=== PATIENT | female | born 2005 | race Caucasian/White ===

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

== ENCOUNTER → 2025-03-10 | Outpatient (CLI) | payer OTHER, SELFPAY ==
[2025-03-10 10:08] LABS: Absolute Lymphocyte Count 2.03 X10^3/uL (0.83-4.51); Absolute Neutrophil Count 3.5 X10^3/uL (2.0-7.7); Basophil# 0.05 X10^3/uL; Basophil% 0.8 % (0-1); Eosinophil# 0.08 X10^3/uL; Eosinophils% 1.3 % (0-5); Hematocrit 42.2 % (37-47); Hemoglobin 13.8 g/dL (12.0-15.0); Lymphocyte # 2.03 X10^3/ul (0.83-4.51); Lymphocyte % 32.8 % (19-41); Mean Corp Hgb Conc 32.7 g/dL (32-36); Mean Corpuscular Hgb 28.9 pg (27.0-32.0); Mean Corpuscular Volume 88.5 fL (81-99); Mean Platelet Vol. 10.7 fl (6.2-12.0); Monocyte% 8.1 % (0-10); NRBC Flagged by Analyzer 0 % (0-5); Neutrophil # 3.49 X10^3/uL (2.7-7.7); Neutrophil % 56.5 % (47-70); Platelet Count 357 K/mm3 (150-450); RBC Distribution Width CV 12.4 % (11.6-14.6); RBC Distribution Width SD 40.6 fl (35.1-43.9); Red Blood Count 4.77 M/mm3 (4.2-5.4); White Blood Count 6.2 K/mm3 (4.4-11.0)
[2025-03-10 11:28] LABS: ALB/GLOB Ratio 1.4 RATIO (0.9-2.4); AST(SGOT) 29 U/L (<=31); Alanine Aminotransfer ALT/SGPT 36 U/L (<=34); Albumin, Serum 4.4 g/dL (3.5-5.0); Alkaline Phosphatase 112 U/L (35-104); Anion Gap 11 (5-15); BUN 19 mg/dL (4-19); BUN/Creat Ratio 20.8 RATIO (10-20); Calcium,Total 9.5 mg/dL (7.6-11.0); Carbon Dioxide 24.9 mmol/L (21.0-32.0); Chloride 105 mmol/L (98-108); Cholesterol 219 mg/dL (<=190); Creatinine, Serum 0.91 mg/dL (0.70-1.20); EST Glomerular Filtration Rate 93 (>60); Ferritin 27 ng/mL (22-378); Globulin 3.1 g/dL (2.2-4.2); Glucose 90 mg/dL (70-99); High Density Lipoprotein 56 mg/dL; Low Density Lipoprotein Calc. 132 mg/dL; Potassium 4.3 mmol/L (3.3-5.1); Protein, Total 7.6 g/dL (5.9-8.4); Sodium Level 141 mmol/L (133-145); Total Bilirubin 0.29 mg/dL (0.00-1.30); Triglycerides 156 mg/dL; Very Low Density Lipoprotein 31 mg/dL (5-40); Vitamin D,25 Hydroxy 21.9 ng/mL (30-100); cholesterol:hdl ratio screen 3.93
[2025-03-10 11:49] LABS: Iron 66 ug/dL (50-170); Iron Binding Capacity,Total 341 ug/dL (250-450); Iron Binding Capacity,Unsat 275 ug/dL (228-428); Magnesium 2.1 mg/dL (1.5-2.2)
--- OUTSIDE RECORDS SUMMARY | 2025-03-10 12:20 | XMS RPT_ITS | CCD ---
Author Organization [facility] [place] [facility] Care Team Providers Care Photographic Equipment Mechanic Name Role Phone NO PRIMARY CAREMD Primary Care Unavailable TRAN CORRAL Attending Unavailable REFERRED, SELF Referring Unavailable Dr. Ignacio Townsend Referring Provider Dr. Gabe Olson Attending Provider DO Tiffani Mckeon Primary Care Provider Gabe Olson Attending Unavailable Tiffani Mckeon Primary Care Unavailable Ignacio Townsend Referring Unavailable Tiffani Mckeon Primary Care Unavailable Mary Sifuentes Attending Unavailable Medications Current Medications Medication Drug Class(es) Dates Sig (Normalized) Sig (Original) sertraline 50 mg oral tablet (1 source) Serotonin Reuptake Inhibitor Start: 09-28-2023 take 50 mg by mouth once daily Sertraline Active 50 MG PO DAILY September 28, 2023 1:00am Completed/Discontinued Medications Medication Drug Class(es) Dates Sig (Normalized) Sig (Original) atomoxetine 25 mg oral capsule (1 source) Norepinephrine Reuptake Inhibitor Start: 09-28-2023 End: 11-28-2023 take 25 mg by mouth once daily Atomoxetine Discontinued 25 MG PO DAILY September 28, 2023 1:00am November 28, 2023 4:09pm Cetirizine (1 source) Histamine-1 Receptor Antagonist Start: 09-28-2023 End: 11-28-2023 cetirizine (Children's Zyrtec Allergy) Discontinued PO September 28, 2023 1:00am November 28, 2023 4:09pm Problems Problem Classification Problem Date Documented Date Episodic/Chronic Administrative/social admission (1 source) Special examination status; Translations: [Encounter for examination for participation in sport] 09-28-2023 Episodic Conditions associated with dizziness or vertigo (4 sources) Dizziness; Translations: [Dizziness and giddiness] Onset: 01-01-2024 11-28-2023 Episodic Results Test Name Value Interpretation Reference Range Facility ANTINUCLEAR ANTIBODIES DIREC Ton 12-28-2023 DIMA,DIRECT Negative Normal Negative [facility] Comment on above: Order Comment: Order Date: 12/26/23 Order Info: 0270-1 - DIMA Result Comment: Perf ormed at: [facility] [address] [id number] [place]: Jamey Borja PhD, Phone: [phone] Performed By: #### L 501.9520, L500.4050, L100.0100, L700.6800, L506.0250, L506.1000, L3100.5475, L501.9985 #### [facility] [address] [place], [address] Absolute lymphocyte countOrd ered By: Mary Sifuentes on 12-26-2023 Lymphocytes Auto (Unsp spec) [#/Vol] 2.12 10*3/uL 0.83-4.51 [facility] Automated lymphocyte count a s percentage of total leukocytesOrdered By: Mary Sifuentes on 12-26-2023 Lymphocytes/100 WBC Auto (Unsp spec) 29.4 % 25-45 [facility] Basophil percentageOrdered B y: Sarwatemily Bear on 12-26-2023 Basophils/100 WBC (Bld) 0.7 % 0-1 [facility] Bilirubin [Mass/Vol] 0.40 mg/dL 0.20-1.[address] [facility] Comment on above: For patients on eltr ombopag therapy, use of Dimension [place] TBIL is not recommended. Chloride [Moles/Vol] 105 mmol/L 98-[address] [facility] Eosinophils/100 WBC (Bld) 1.1 % 0-3 [facility] Glucose [Mass/Vol] 96 mg/dL 74-106 [facility] Hemoglobin (Bld) [Mass/Vol] 14.1 g/dL 12.0-15.0 [facility] Monocytes/100 WBC (Bld) 6.9 % 3-6 [facility] Neutrophils (Bld) [#/Vol] 4.5 10*3/uL 2.0-7.7 [facility] Neutrophils/100 WBC (Bld) 61.6 % 34-64 [facility] Potassium [Moles/Vol] 4.2 mmol/L 3.5-5.1 [facility] Protein [Mass/Vol] 8.1 g/dL 6.4-8.2 [facility] Sodium [Moles/Vol] 139 mmol/L 136-145 [facility] WBC (Bld) [#/Vol] 7.2 10*3/uL 4.5-13.0 [facility] CBC W/Diff, Automatedon 03- 0-2023 Absolute Lymph 2.12 X10 3/uL Normal 0.83-4.51 [facility] Comment on above: Order Comment: Order Date: 12/26/23 Order Info: 0184-1 - CBCD Performed By: #### L 501.9520, L500.4050, L100.0100, L700.6800, L506.0250, L506.1000, L3100.5475, L501.9985 #### [facility] [address] [place], [address] Absolute Neut 4.5 X10 3/uL Normal 2.0-7.7 [facility] Comment on above: Order Comment: Order Date: 12/26/23 Order Info: 0184-1 - CBCD Performed By: #### L 501.9520, L500.4050, L100.0100, L700.6800, L506.0250, L506.1000, L3100.5475, L501.9985 #### [facility] [address] [place], [address] Basophils/100 WBC (Bld) 0.7 % Normal 0-1 [facility] Comment on above: Order Comment: Order Date: 12/26/23 Order Info: 0184-1 - CBCD Performed By: #### L 501.9520, L500.4050, L100.0100, L700.6800, L506.0250, L506.1000, L3100.5475, L501.9985 #### [facility] [address] [place], [address] Eosinophils/100 WBC (Bld) 1.1 % Normal 0-3 [facility] Comment on above: Order Comment: Order Date: 12/26/23 Order Info: 0184- - CBCD Performed By: #### L 501.9520, L500.4050, L100.0100, L700.6800, L506.0250, L506.1000, L3100.5475, L501.9985 #### [facility] [address] [place], [address] Erythrocyte distribution width (RBC) [Ratio] 12.2 % Normal 11.6-14.6 [facility] Comment on above: Order Comment: Order Date: 12/26/23 Order Info: 0184- - CBCD Performed By: #### L 501.9520, L500.4050, L100.0100, L700.6800, L506.0250, L506.1000, L3100.5475, L501.9985 #### [facility] [address] [place], [address] Hematocrit (Bld) [Volume fraction] 44.4 % Normal 37-46 [facility] Comment on above: Order Comment: Order Date: 12/26/23 Order Info: 0184- - CBCD Performed By: #### L 501.9520, L500.4050, L100.0100, L700.6800, L506.0250, L506.1000, L3100.5475, L501.9985 #### [facility] [address] [place], [address] Hemoglobin (Bld) [Mass/Vol] 14.1 g/dL Normal 12.0-15.0 [facility] Comment on above: Order Comment: Order Date: 12/26/23 Order Info: 0184- - CBCD Performed By: #### L 501.9520, L500.4050, L100.0100, L700.6800, L506.0250, L506.1000, L3100.5475, L501.9985 #### [facility] [address] [place], [address] IG% 0.300 Normal 0.0-0.9 [facility] Comment on above: Order Comment: Order Date: 12/26/23 Order Info: 0184-1 - CBCD Result Comment: IG% - Immature Granulocytes (promyelocytes, myelocytes and metamyelocytes) > 1% indicates that a LEFT SHIFT is Present. Performed By: #### L 501.9520, L500.4050, L100.0100, L700.6800, L506.0250, L506.1000, L3100.5475, L501.9985 #### [facility] [address] [place], [place], [id number] Lymphocytes/100 WBC (Bld) 29.4 % Normal 25-45 [facility] Comment on above: Order Comment: Order Date: 12/26/23 Order Info: 0184-1 - CBCD Performed By: #### L 501.9520, L500.4050, L100.0100, L700.6800, L506.0250, L506.1000, L3100.5475, L501.9985 #### [facility] [address] [place], [address] MCH (RBC) [Entitic mass] 28.1 pg Normal 25.0-35.0 [facility] Comment on above: Order Comment: Order Date: 12/26/23 Order Info: 0184-1 - CBCD Performed By: #### L 501.9520, L500.4050, L100.0100, L700.6800, L506.0250, L506.1000, L3100.5475, L501.9985 #### [facility] [address] [place], [address] MCHC (RBC) [Mass/Vol] 31.8 g/dL Low 32-36 [facility] Comment on above: Order Comment: Order Date: 12/26/23 Order Info: 0184-1 - CBCD Performed By: #### L 501.9520, L500.4050, L100.0100, L700.6800, L506.0250, L506.1000, L3100.5475, L501.9985 #### [facility] [address] [place], [address] MCV (RBC) [Entitic vol] 88.6 fL Normal 78-96 [facility] Comment on above: Order Comment: Order Date: 12/26/23 Order Info: 0184- - CBCD Performed By: #### L 501.9520, L500.4050, L100.0100, L700.6800, L506.0250, L506.1000, L3100.5475, L501.9985 #### [facility] [address] [place], [address] Monocytes/100 WBC (Bld) 6.9 % High 3-6 [facility] Comment on above: Order Comment: Order Date: 12/26/23 Order Info: 0184-1 - CBCD Performed By: #### L 501.9520, L500.4050, L100.0100, L700.6800, L506.0250, L506.1000, L3100.5475, L501.9985 #### [facility] [address] [place], [address] Neutrophils/100 WBC (Bld) 61.6 % Normal 34-64 [facility] Comment on above: Order Comment: Order Date: 12/26/23 Order Info: 0184-1 - CBCD Performed By: #### L 501.9520, L500.4050, L100.0100, L700.6800, L506.0250, L506.1000, L3100.5475, L501.9985 #### [facility] [address] [place], [address] Nucleated RBC (Bld) [#/Vol] 0 10*3/uL Normal 0-5 [facility] Comment on above: Order Comment: Order Date: 12/26/23 Order Info: 0184-1 - CBCD Performed By: #### L 501.9520, L500.4050, L100.0100, L700.6800, L506.0250, L506.1000, L3100.5475, L501.9985 #### [facility] [address] [place], [address] Platelet mean volume (Bld) [Entitic vol] 10.9 fL Normal 6.2-12.0 [facility] Comment on above: Order Comment: Order Date: 12/26/23 Order Info: 0184-1 - CBCD Performed By: #### L 501.9520, L500.4050, L100.0100, L700.6800, L506.0250, L506.1000, L3100.5475, L501.9985 #### [facility] [address] [place], [address] Platelets (Bld) [#/Vol] 375 10*3/uL Normal 150-450 [facility] Comment on above: Order Comment: Order Date: 12/26/23 Order Info: 0184-1 - CBCD Performed By: #### L 501.9520, L500.4050, L100.0100, L700.6800, L506.0250, L506.1000, L3100.5475, L501.9985 #### [facility] [address] [place], [address] RBC (Bld) [#/Vol] 5.01 10*6/uL High 4.1-4.8 [facility] Comment on above: Order Comment: Order Date: 12/26/23 Order Info: 0184-1 - CBCD Performed By: #### L 501.9520, L500.4050, L100.0100, L700.6800, L506.0250, L506.1000, L3100.5475, L501.9985 #### [facility] [address] [place], [address] RDW SD 39.5 fl Normal 35.1-43.9 [facility] Comment on above: Order Comment: Order Date: 12/26/23 Order Info: 0184-1 - CBCD Performed By: #### L 501.9520, L500.4050, L100.0100, L700.6800, L506.0250, L506.1000, L3100.5475, L501.9985 #### [facility] [address] [place], [address] WBC (Bld) [#/Vol] 7.2 10*3/uL Normal 4.5-13.0 [facility] Comment on above: Order Comment: Order Date: 12/26/23 Order Info: 0184-1 - CBCD Performed By: #### L 501.9520, L500.4050, L100.0100, L700.6800, L506.0250, L506.1000, L3100.5475, L501.9985 #### [facility] [address] [place], [place], [id number] [phone] Metabolic Prof [facility] 12-26-2023 Albumin [Mass/Vol] 4.0 g/dL Normal 3.2-5.0 [facility] Comment on above: Order Comment: Order Date: 12/26/23 Order Info: 0786-1 - CMP Order Info: 3016-3 - TSH Order Info: 2284-8 - FOLS N Performed By: #### L 501.9520, L500.4050, L100.0100, L700.6800, L506.0250, L506.1000, L3100.5475, L501.9985 #### [facility] [address] [place], [address] Albumin/Globulin [Mass ratio] 1.0 {ratio} Normal 0.9-2.4 [facility] Comment on above: Order Comment: Order Date: 12/26/23 Order Info: 0786-1 - CMP Order Info: 3015-12 - TSH Order Info: 8 - FOLS N Performed By: #### L 501.9520, L500.4050, L100.0100, L700.6800, L506.0250, L506.1000, L3100.5475, L501.9985 #### [facility] [address] [place], [address] ALK P 116 U/L Normal 47-119 [facility] Comment on above: Order Comment: Order Date: 12/26/23 Order Info: 785-10 - CMP Order Info: 3015-12 - TSH Order Info: 2284-05 - FOLS N Performed By: #### L 501.9520, L500.4050, L100.0100, L700.6800, L506.0250, L506.1000, L3100.5475, L501.9985 #### [facility] [address] [place], [place], [address] ALT [Catalytic activity/Vol] 25 U/L Normal 13-56 [facility] Comment on above: Order Comment: Order Date: 12/26/23 Order Info: 0786- - CMP Order Info: 3015-12 - TSH Order Info: 2284-05 - FOLS N Performed By: #### L 501.9520, L500.4050, L100.0100, L700.6800, L506.0250, L506.1000, L3100.5475, L501.9985 #### [facility] [address] [place], [address] AST [Catalytic activity/Vol] 21 U/L Normal 15-37 [facility] Comment on above: Order Comment: Order Date: 12/26/23 Order Info: 0786-1 - CMP Order Info: 3016-3 - TSH Order Info: 2284-05 - FOLS N Performed By: #### L 501.9520, L500.4050, L100.0100, L700.6800, L506.0250, L506.1000, L3100.5475, L501.9985 #### [facility] [address] [place], [address] Bilirubin [Mass/Vol] 0.40 mg/dL Normal 0.20-1.[address] [facility] Comment on above: Order Comment: Order Date: 12/26/23 Order Info: 07-1 - CMP Order Info: 3 - TSH Order Info: 2284-05 - FOLS N Result Comment: For patients on eltrombopag therapy, use of Dimension [place] TBIL is not recommended. Performed By: #### L 501.9520, L500.4050, L100.0100, L700.6800, L506.0250, L506.1000, L3100.5475, L501.9985 #### [facility] [address] [place], [address] BUN/CRE 19.4 RATIO Normal 10-20 [facility] Comment on above: Order Comment: Order Date: 12/26/23 Order Info: 0786- - CMP Order Info: 3015-12 - TSH Order Info: 2284-05 - FOLS N Performed By: #### L 501.9520, L500.4050, L100.0100, L700.6800, L506.0250, L506.1000, L3100.5475, L501.9985 #### [facility] [address] [place], [address] CA,Total 9.5 mg/dL Normal 8.5-10.1 [facility] Comment on above: Order Comment: Order Date: 12/26/23 Order Info: 0786-1 - CMP Order Info: 3015-12 - TSH Order Info: 8 - FOLS N Performed By: #### L 501.9520, L500.4050, L100.0100, L700.6800, L506.0250, L506.1000, L3100.5475, L501.9985 #### [facility] [address] [place], [address] Chloride [Moles/Vol] 105 mmol/L Normal 98-[address] [facility] Comment on above: Order Comment: Order Date: 12/26/23 Order Info: 07- - CMP Order Info: 3015-12 Order Info: 2284-05 - FOLS N Performed By: #### L 501.9520, L500.4050, L100.0100, L700.6800, L506.0250, L506.1000, L3100.5475, L501.9985 #### [facility] [address] [place], [place], [phone] ([phone] CO2 [Moles/Vol] 28.0 mmol/L Normal 21.0-32.0 [facility] Comment on above: Order Comment: Order Date: 12/26/23 Order Info: 785-10 - [facility] Order Info: 3015-12 Order Info: 2284-05 - FOLS N Performed By: #### L 501.9520, L500.4050, L100.0100, L700.6800, L506.0250, L506.1000, L3100.5475, L501.9985 #### [facility] [address] [place], [address] Creatinine [Mass/Vol] 0.98 mg/dL Normal 0.55-1.02 [facility] Comment on above: Order Comment: Order Date: 12/26/23 Order Info: 07 - CMP Order Info: 3015-12 Order Info: 2284-05 - FOLS N Result Comment: The validity of the calculated GFR GFRAA in patients over 70 years has not been determined. Clinical correlation is essential. Performed By: #### L 501.9520, L500.4050, L100.0100, L700.6800, L506.0250, L506.1000, L3100.5475, L501.9985 #### [facility] [address] [place], [place], [id number] EST GFR - AA 95 mL/min Normal >60 [facility] Comment on above: Order Comment: Order Date: 12/26/23 Order Info: 0786- - CMP Order Info: 3015-12 Order Info: 2284-05 - FOLS N Result Comment: Afri can Citizen [place] GFR Calc Performed By: #### L 501.9520, L500.4050, L100.0100, L700.6800, L506.0250, L506.1000, L3100.5475, L501.9985 #### [facility] [address] [place], [place], [id number] GAP 6 Normal 5-15 [facility] Comment on above: Order Comment: Order Date: 12/26/23 Order Info: 07 - CMP Order Info: 3015-12 Order Info: 2284-05 - FOLS N Performed By: #### L 501.9520, L500.4050, L100.0100, L700.6800, L506.0250, L506.1000, L3100.5475, L501.9985 #### [facility] [address] [place], [place], [address] GFR/1.73 sq M.predicted among non-blacks MDRD (S/P/Bld) [Vol rate/Area] 78 mL/min/{1.73_m2} Normal >60 [facility] Comment on above: Order Comment: Order Date: 12/26/23 Order Info: 0786- - CMP Order Info: 3015-12 Order Info: 2284-05 - FOLS N Result Comment: Non- GFR Calc Performed By: #### L 501.9520, L500.4050, L100.0100, L700.6800, L506.0250, L506.1000, L3100.5475, L501.9985 #### [facility] [address] [place], [address] Globulin (S) [Mass/Vol] 4.1 g/dL Normal 2.2-4.2 [facility] Comment on above: Order Comment: Order Date: 12/26/23 Order Info: 0786-1 - CMP Order Info: 3015-12 - TSH Order Info: 2284-05 - FOLS N Performed By: #### L 501.9520, L500.4050, L100.0100, L700.6800, L506.0250, L506.1000, L3100.5475, L501.9985 #### [facility] [address] [place], [address] Glucose [Mass/Vol] 96 mg/dL Normal 74-106 [facility] Comment on above: Order Comment: Order Date: 12/26/23 Order Info: 785-10 - [facility] Order Info: 3015-12 - TSH Order Info: 2284-05 - FOLS N Performed By: #### L 501.9520, L500.4050, L100.0100, L700.6800, L506.0250, L506.1000, L3100.5475, L501.9985 #### [facility] [address] [place], [address] Potassium [Moles/Vol] 4.2 mmol/L Normal 3.5-5.1 [facility] Comment on above: Order Comment: Order Date: 12/26/23 Order Info: 0786 - [facility] Order Info: 3015-12 - TSH Order Info: 2284-05 - FOLS N Performed By: #### L 501.9520, L500.4050, L100.0100, L700.6800, L506.0250, L506.1000, L3100.5475, L501.9985 #### [facility] [address] [place], [address] Sodium [Moles/Vol] 139 mmol/L Normal 136-145 [facility] Comment on above: Order Comment: Order Date: 12/26/23 Order Info: 0786-1 - CMP Order Info: 3015-12 - TSH Order Info: 2284-05 - FOLS N Performed By: #### L 501.9520, L500.4050, L100.0100, L700.6800, L506.0250, L506.1000, L3100.5475, L501.9985 #### [facility] [address] [place], [place], [address] T PROT 8.1 g/dL Normal 6.4-8.2 [facility] Comment on above: Order Comment: Order Date: 12/26/23 Order Info: 0786- - CMP Order Info: 3015-12 - TSH Order Info: 2284-05 - FOLS N Performed By: #### L 501.9520, L500.4050, L100.0100, L700.6800, L506.0250, L506.1000, L3100.5475, L501.9985 #### [facility] [address] [place], [address] Urea nitrogen [Mass/Vol] 19 mg/dL High 7-18 [facility] Comment on above: Order Comment: Order Date: 12/26/23 Order Info: 0786-1 - CMP Order Info: 3015-12 - TSH Order Info: 2284-05 - FOLS N Performed By: #### L 501.9520, L500.4050, L100.0100, L700.6800, L506.0250, L506.1000, L3100.5475, L501.9985 #### [facility] [address] [place], [place], [id number] Determination of erythrocyte mean corpuscular volume (MCV)Ordered By: Mary Sifuentes on 12-26-2023 MCV (RBC) [Entitic vol] 88.6 fL 78-96 [facility] Erythrocyte distribution wid th ratioOrdered By: Mary Sifuentes on 12-26-2023 Erythrocyte distribution width (RBC) [Ratio] 12.2 % 11.6-14.6 [facility] Erythrocyte distribution wid th standard deviationOrdered By: Mary Sifuentes on 12-26-2023 Erythrocyte distribution width (RBC) [Entitic vol] 39.5 fL 35.1-43.9 [facility] Folates, (Folic Acid)on 12-07 FOLATES 22.20 ng/mL Normal 3.1-55.4 [facility] Comment on above: Order Comment: Order Date: 12/26/23 Order Info: 0786-1 - CMP Order Info: 3016-3 - TSH Order Info: 2284-8 - FOLS N Result Comment: Slig ht Hemolysis, Result may be falsely increased. Performed By: #### L 501.9520, L500.4050, L100.0100, L700.6800, L506.0250, L506.1000, L3100.5475, L501.9985 #### [facility] [address] [place] [address], [id number] Hematocrit Auto (Bld) [Volum e fraction]Ordered By: Mary Sifuentes on 12-26-2023 Hematocrit (Bld) [Volume fraction] 44.4 % 37-46 [facility] Immature granulocytes/100 WB C Auto (Bld)Ordered By: Mary Bear on 12-26-2023 Immature granulocytes/100 WBC (Bld) 0.300 % 0.0-0.9 [facility] Comment on above: IG% - Immature Granu locytes (promyelocytes, myelocytes and metamyelocytes) > 1% indicates that a LEFT SHIFT is Present. Laboratory - Chemistry and C hemistry - challengeOrdered By: Mary Sifuentes on 12-26-2023 Albumin/Globulin [Mass ratio] 1.0 {ratio} 0.9-2.4 [facility] ALP [Catalytic activity/Vol] 116 U/L 47-119 [facility] ALT [Catalytic activity/Vol] 25 U/L 13-56 [facility] CO2 [Moles/Vol] 28.0 mmol/L 21.0-32.0 [facility] Globulin (S) [Mass/Vol] 4.1 g/dL 2.2-4.2 [facility] Urea nitrogen/Creatinine [Mass ratio] 19.4 mg/mg 10-20 [facility] Laboratory - Hematology and Cell countsOrdered By: Mary Sifuentes on 12-26-2023 MCH (RBC) [Entitic mass] 28.1 pg 25.0-35.0 [facility] MCHC (RBC) [Mass/Vol] 31.8 g/dL 32-36 [facility] Nucleated RBC/100 WBC (Bld) [Ratio] 0 % 0-5 [facility] Platelet mean volume (Bld) [Entitic vol] 10.9 fL 6.2-12.0 [facility] Platelets (Bld) [#/Vol] 375 10*3/uL 150-450 [facility] No Panel InformationOrdered By: Mary Sifuentes on 12-26-2023 Anti-Nuclear Antibody Screen Negative Negative [facility] Comment on above: Performed at: [facility] [employer] [id number] Director: Jamey Borja PhD, Phone: [phone] Estimated GFR (MDRD) Amer 95 mL/min >60 [facility] Comment on above: GFR Calc Estimated GFR (MDRD) Non-Af Amer 78 mL/min >60 [facility] Comment on above: Non- GFR Calc Folate 22.20 ng/mL 3.1-55.4 [facility] Comment on above: Slight Hemolysis, Re sult may be falsely increased. Vitamin D 25-Hydroxy 34.0 ng/mL [facility] Comment on above: Vitamin D 25(OH) Sta tus Range Deficiency <20 ng/mL (50nmol/L) Insufficiency 20 - 30 ng/mL (50 - 75 nmol/L) Sufficiency 30 - 100 ng/mL (75 - 250 nmol/L) Toxicity >100 ng/mL (>250 nmol/L) ,Serum,hCG Quali.on 12-26-2023 HCG, SERUM QUAL Negative Normal [facility] Comment on above: Order Comment: Order Date: 12/26/23 Order Info: 2118-8 - PREGS Performed By: #### L 011.9514, L513.1198, L100.0100, L700.6800, L506.0250, L506.1000, L3100.5475, L501.9985 #### [facility] [place], [address] RBC Auto (Bld) [#/Vol]Ordere d By: Mary Sifuentes on 12-26-2023 RBC (Bld) [#/Vol] 5.01 10*6/uL 4.1-4.8 [facility] Serum or plasma calcium suzan urement (mass/volume)Ordered By: Mary Sifuentes on 12-26-2023 Calcium [Mass/Vol] 9.5 mg/dL 8.5-10.1 [facility] Serum or plasma choriogonado tropin detectionOrdered By: Mary Sifuentes on 12-26-2023 HCG ( test) Ql Negative [facility] Serum or plasma creatinine m easurement (mass/volume)Ordered By: Mary Sifuentes on 12-26-2023 Creatinine [Mass/Vol] 0.98 mg/dL 0.55-1.02 [facility] Comment on above: The validity of the calculated GFR & GFRAA in patients over 70 years has not been determined. Clinical correlation is essential. Serum or plasma thyroid stim ulating hormone (TSH) measurement (units/volume)Ordered By: Mary Sifuentes on 12-26-2023 TSH Qn 2.70 uIU/mL 0.358-3.74 [facility] Serum or plasma urea nitroge n measurement (mass/volume)Ordered By: Mary Sifuentes on 12-26-2023 Urea nitrogen [Mass/Vol] 19 mg/dL 7-18 [facility] Thin prep Papanicolaou smear with manual screeningOrdered By: Mary Sifuentes on 12-26-2023 Thin prep Papanicolaou smear with manual screening 4.0 g/dL 3.2-5.0 [facility] Thin prep Papanicolaou smear with manual screening 21 U/L 15-37 [facility] Thin prep Papanicolaou smear with manual screening 6 5-15 [facility] Thyroid Stim Hormone (TSH)on 12-26-2023 TSH 2.70 uIU/mL Normal 0.358-3.74 [facility] Comment on above: Order Comment: Order Date: 12/26/23 Order Info: [id number] - CMP Order Info: [id number] - TSH Order Info: [id number] - FOLS N Performed By: #### L 501.9520, L500.4050, L100.0100, L700.6800, L506.0250, L506.1000, L3100.5475, L501.9985 #### [facility] [address] [place], [place], [address] Vitamin D,25 Hydroxyon 12-25 Vitamin D 25-OH 34.0 ng/mL Normal [facility] Comment on above: Order Comment: Order Date: 12/26/23 Order Info: [id number] - VITD25 Result Comment: Ting min D 25(OH) Status Range Deficiency <20 ng/mL (50nmol/L) Insufficiency 20 - 30 ng/mL (50 - 75 nmol/L) Sufficiency 30 - 100 ng/mL (75 - 250 nmol/L) Toxicity >100 ng/mL (>250 nmol/L) Performed By: #### L 501.9520, L500.4050, L100.0100, L700.6800, L506.0250, L506.1000, L3100.5475, L501.9985 #### [facility] [address] [place], [place], [address] Whole blood hemoglobin A1c/t otal hemoglobin ratio (mass fraction)Ordered By: Mary Sifuentes on 12-26-2023 HbA1c (Bld) [Mass fraction] 5.1 % Normal 3.8-5.6 [facility] Comment on above: Normal < 5.7 % Predi abetic 5.7 - 6.4 % Diabetic >or= 6.5 % Please note range changes. Order Comment: Order Date: 12/26/23 Order Info: [id number] - A1C Result Comment: Norm al < 5.7 % Prediabetic 5.7 - 6.4 % Diabetic >or= 6.5 % Please note range changes. Performed By: #### L 501.9520, L500.4050, L100.0100, L700.6800, L506.0250, L506.1000, L3100.5475, L501.9985 #### [facility] [address] [place], [address] 12 Lead EKG performed by [facility] on 11-28-2023 12 Lead EKG performed by [facility] [address] [place] [address] 12 Lead EKG performed by [facility] 11/28/23 1506 MR#: [id number] Acct: [id number] Name: KAZ ORELLANA Rep #: [id number] : 2005 18 From: Gabe Olson MD Attending Dr: Dr. Gabe Olson MD Status: DEP A MB Ordering Dr: Gabe Olson MD Date: 11/28/23 Location: [facility] Sex: F C Admitted: BMS/12 Lead EKG performed by [facility] ECG Report Interpretation ----Sinus Rhythm -RSR(V1) -probably normal for age. PROBABLY NORMAL FOR AGEElectronically signed on 11/29/2023 at 09:10 by Gabe Olson 66. com Software Version [id number] 11/29/23 0913 Date Gabe Olson MD CC: Tiffani Mckeon DO Date Dictated: 11/28/23 1506 Date Transcribed: 11/28/231505 Geographical Historian: [place] Signed Normal [facility] Cardiology Visit Reporton Cardiology Visit Report [facility] [address] [place] [address] OFFICE VISIT Date of Service: 11/28/23 MR#: [id number] Acct: [id number] Name: JAYLON ORELLANATON Rep #: [id number] : 2005 Provider: Dr. Gabe Olson MD Age/Sex: 18/F Location: [facility] Status: Signed [facility] History of Present Illness Details: Pleasant 18-year-old lady with no previous cardiac history who is rather active and has been having headaches and vertigo for about 2 months. She was seen by the ENT physician who recommended that this may be a cardiac problem and sent her to see us. She has had no russ syncopal episodes. She denies any chest pain or paroxysmal nocturnal dyspnea or pedal edema she has had no neck arm or jaw discomfort suggest angina. She has not had any problems while she is playing golf with her dizziness but she wants to investigate this to exclude a cardiac problem. Her physical exam today is unremarkable her electrocardiogram demonstrates sinus rhythm with a rate of 77 bpm. 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 Accompanied by: Self Is patient in pain?: No Allergies No Known Allergies Allergy (Unverified 11/28/23 15:08) Medications sertraline 50 mg tablet 50 mg PO DAILY 09/28/23 [History Confirmed 11/28/23] [facility] Medical History History of frequent headaches Vertigo Family History Uncle Congenital heart defect Social History Smoking Status: Never smoker alcohol intake: never substance use type: does not use ROS Const Const: Positive for fatigue and headache(s); Negative for weakness, daytime sleepiness or difficulty sleeping Eyes Eyes: Negative for change in vision ENT ENT: Positive for headache(s) and dizziness; Negative for Nosebleed/epistaxis Cardio Chest Pain: No Palpitations: Yes Edema: None Resp Respiratory: Negative for SOB with activity, SOB at rest, SOB orthopnea SOB lying down or Cough GI GI: Negative nausea, vomiting or heartburn Neuro Neuro: Positive for dizziness, lightheadedness and headache(s); Negative for near syncope or weakness Endo Endo: Positive for fatigue Cardiology Exam Const Appearance: cooperative, healthy appearing, no acute distress, well developed and well groomed Nutritional Appearance: average body habitus and well nourished Orientation: alert, awake and oriented x3 Head Head: normal to inspection, normocephalic and atraumatic Ears: hearing grossly normal bilaterally and external ears normal Nose: external nose normal, nares normal, nasal mucous membranes and turbinates normal, septum normal and no nasal discharge Face and Sinus: face symmetric Mouth: oral mucosae normal, tongue normal, oropharynx normal and moist mucous membranes Teeth and gingiva: dentition normal Throat: posterior oropharynx normal, tonsils normal and uvula midline Eyes General: appearance normal, both eyes and all related structures Eyelids: eyelids normal Conjunctivae: conjunctivae normal Pupils: PERRL, normal by confrontation and accommodation normal EOM: EOM intact bilaterally Neck Neck: normal visual inspection, trachea midline and no JVD JVD: +5 Carotids: normal carotid upstroke and bounding pulses Chest Chest inspection: normal inspection of the chest, symmetric chest movement and normal respiratory effort Auscultation: Bilateral: Clear to Auscultation Cardio Palpation: normal PMI Rate: regular rate Rhythm: regular rhythm Heart sounds: S1 normal, S2 normal and normal, physiologic split S2; Negative rub, gallop or murmur GI GI: normal to inspection, soft, no hepatosplenomegaly and bowel sounds present Neuro General: patient alert, patient awake, patient oriented x3, gait normal, moves all extremities and no focal sensory deficit Skin Skin: no rashes or lesions noted Extremities Pulses: Normal: Right Femoral Pulse, Left Femoral Pulse, Right Dorsalis Pedis Pulse, Left Dorsalis Pedis Pulse, Right Posterior Tibial Pulse, Left Posterior Tibial Pulse, Right Radial Pulse and Left Radial Pulse Lower Extremity Edema: None: Bilateral Musculoskel Musculoskeletal: No joint tenderness Psych Psychological: normal affect Supplemental Info Supplemental Information Labs: No Data to Display Diagnostics: Electrocardiogram Pulmonary: No Data to Display Past Visits: Cardiology Visit 11/28/23 Assessment and Plan Assessment and (more content not included)... Normal [facility] CNOVon 04-21-2019 CNOV Office Visit ([facility] ) REYNAKAZ ([id number]) 5 F Date Time Provider Department 04/21/19 12:00 PM JOAQUIN MARINO) [facility] During your visit today, we recorded the following information about you: Temperature Pulse Respiration Blood pressure 97.9 degrees 76/minute 16/minute 126/84 Weight 74.3 kg Joaquin Marino PA-C 04/21/2019 1:27 PM Signed Subjective HPI Patient presents with a sore throat, nasal congestion and ear pressure for 3 or 4 days. She had a fever 2 days ago of 102. None today. Her ears of started to feel better. Denies chest pain or shortness of breath. No history of asthma. No vomiting or diarrhea. Mom wanted to make sure she didn't have strep. Review of Systems Constitutional: Positive for chills and fever. HENT: Positive for congestion, ear pain and sore throat. Negative for ear discharge. Respiratory: Negative for cough. Cardiovascular: Negative. Gastrointestinal: Negative. Genitourinary: Negative. All other systems reviewed and are negative. No past medical history on file. No current outpatient medications on file. No current facility-administered medications for this visit. No past surgical history on file. No family history on file. Social History Tobacco Use - Smoking status: Never Smoker - Smokeless tobacco: Never Used Substance Use Topics - Alcohol use: Not on file - Drug use: Not on file BP 126/84 Pulse 76 Temp 36.6 ?C (97.9 ?F) (Tympanic) Resp 16 Wt 74.3 kg (163 lb 12.8 oz) Objective Physical Exam Constitutional: She is well-developed, well-nourished, and in no distress. HENT: Head: Normocephalic and atraumatic. Right Ear: Tympanic membrane, external ear and ear canal normal. Left Ear: Tympanic membrane, external ear and ear canal normal. Nose: Mucosal edema and rhinorrhea present. Mouth/Throat: Uvula is midline and mucous membranes are normal. Posterior oropharyngeal edema and posterior oropharyngeal erythema present. Neck: Normal range of motion. Neck supple. Cardiovascular: Normal rate, regular rhythm and normal heart sounds. Pulmonary/Chest: Effort normal and breath sounds normal. No respiratory distress. She has no wheezes. She has no rales. Lymphadenopathy: She has no cervical adenopathy. Neurological: She is alert. Skin: Skin is warm and dry. Nursing note and vitals reviewed. ASSESSMENT/PLAN: 1. Sore throat - ICD9: 462, ICD10: J02.9 (primary diagnosis) - Rapid Strep negative in the office today and Throat culture pending - Discussed supportive care treatment with fluids, rest and analgesia. - The patient may also use OTC cough and cold meds as needed. - The patient should follow up in one week if symptoms persist or worsen - GROUP A STREPTOCOCCUS BY PCR - RAPID STREP TEST B/O 2. Viral URI with cough - ICD9: 465.9, ICD10: J06.9, B97.89 - Discussed viral etiology and rationale for treatment. - Symptomatic treatment with prn analgesia - Supportive care with fluids and rest Joaquin Marino PA-C Referring Provider: SELF [200] Allergies As of Date: 04/21/2019 (No Known Allergies) Date Reviewed: 04/21/2019 Reviewed by: Juhi Foy Ma - Fully Assessed Reason for Visit: Sore Throat [200] Cmt: fever over the weekend x 3 days Primary Visit Diagnosis:Sore throat [J02.9] Other Visit Diagnosis:Viral URI with cough [J06.9, B97.89] Order(s):GROUP A STREPTOCOCCUS BY PCR [SQGASPCR] Order #: [id number] RAPID STREP TEST B/O [4269549] Order #: [id number] Problem List As Of Date: 04/21/2019 (None) Encounter Status:Closed by JOAQUIN MARINO PA-C on 04/21/19 Normal [facility] Group A Strep by PCRon 04-21 GAS Specimen Source Throat Swab Normal [facility] Comment on above: Performed By: #### G ASPCR #### [place] [address] Group A Strep PCR Negative Normal [facility] Comment on above: Result Comment: This test was developed and its performance characteristics determined by [facility] [place] ([facility]). It has not been cleared or approved by the FDA. [facility] is regulated under CLIA as qualified to perform high complexity testing. This test is used for clinical purposes. It should not be regarded as investigational or for research. Performed By: #### G ASPCR #### [facility] [address] [place] [id number] PROGRESSon 04-21-2019 PROGRESS HNO ID: [id number] Author: Joaquin Marino (Pa) Service: ? Author Type: Physician Knitted Garment Finisher Type: Progress Notes Filed: 04/21/2019 1:27 PM Note Text: Subjective HPI Patient presents with a sore throat, nasal congestion and ear pressure for 3 or 4 days. She had a fever 2 days ago of 102. None today. Her ears of started to feel better. Denies chest pain or shortness of breath. No history of asthma. No vomiting or diarrhea. Mom wanted to make sure she didn't have strep. Review of Systems Constitutional: Positive for chills and fever. HENT: Positive for congestion, ear pain and sore throat. Negative for ear discharge. Respiratory: Negative for cough. Cardiovascular: Negative. Gastrointestinal: Negative. Genitourinary: Negative. All other systems reviewed and are negative. No past medical history on file. No current outpatient medications on file. No current facility-administered medications for this visit. No past surgical history on file. No family history on file. Social History Tobacco Use - Smoking status: Never Smoker - Smokeless tobacco: Never Used Substance Use Topics - Alcohol use: Not on file - Drug use: Not on file BP 126/84 Pulse 76 Temp 36.6 ?C (97.9 ?F) (Tympanic) Resp 16 Wt 74.3 kg (163 lb 12.8 oz) Objective Physical Exam Constitutional: She is well-developed, well-nourished, and in no distress. HENT: Head: Normocephalic and atraumatic. Right Ear: Tympanic membrane, external ear and ear canal normal. Left Ear: Tympanic membrane, external ear and ear canal normal. Nose: Mucosal edema and rhinorrhea present. Mouth/Throat: Uvula is midline and mucous membranes are normal. Posterior oropharyngeal edema and posterior oropharyngeal erythema present. Neck: Normal range of motion. Neck supple. Cardiovascular: Normal rate, regular rhythm and normal heart sounds. Pulmonary/Chest: Effort normal and breath sounds normal. No respiratory distress. She has no wheezes. She has no rales. Lymphadenopathy: She has no cervical adenopathy. Neurological: She is alert. Skin: Skin is warm and dry. Nursing note and vitals reviewed. ASSESSMENT/PLAN: 1. Sore throat - ICD9: 462, ICD10: J02.9 (primary diagnosis) - Rapid Strep negative in the office today and Throat culture pending - Discussed supportive care treatment with fluids, rest and analgesia. - The patient may also use OTC cough and cold meds as needed. - The patient should follow up in one week if symptoms persist or worsen - GROUP A STREPTOCOCCUS BY PCR - RAPID STREP TEST B/O 2. Viral URI with cough - ICD9: 465.9, ICD10: J06.9, B97.89 - Discussed viral etiology and rationale for treatment. - Symptomatic treatment with prn analgesia - Supportive care with fluids and rest Joaquin Marino PA-C Normal [facility] Vital Signs Date Time Vital Sign Value Performing Clinician [facility] [place] 11-28-2023 15:11-0500 Body height 172.[address] Ignacio Townsend Work Phone: [facility] 11-28-2023 15:11-0500 Body mass index (BMI) [Percentile] Per age and sex 96.5 % Dr. Ignacio Townsend Work Phone: [facility] 11-28-2023 15:11-0500 Body mass index (BMI) [Ratio] 32.4 kg/m2 Dr. Ignacio Townsend Work Phone: [facility] 11-28-2023 15:11-0500 Body weight 96.[address] Ignacio Townsend Work Phone: [facility] 11-28-2023 15:11-0500 Diastolic blood pressure 73 mm[Hg] Dr. Ignacio Townsend Work Phone: [facility] 11-28-2023 15:11-0500 Heart rate 65 /min Dr. Ignacio Townsend Work Phone: [facility] 11-28-2023 15:11-0500 Respiratory rate 14 /min Dr. Ignacio Townsend Work Phone: [facility] 11-28-2023 15:11-0500 Systolic blood pressure 110 mm[Hg] Dr. Ignacio Townsend Work Phone: [facility] Encounters Encounter Date Encounter Type Care Provider Facility Start: 12-26-2023 End: 12-26-[address] Ignacio Townsend Work Phone: [facility] [place] [facility] Start: 12-26-2023 End: 12-26-[address] Ignacio Townsend Work Phone: [facility] Work Phone: Start: 11-28-2023 End: 11-28-2023 ambulatory Gabe Solorioori Facility:[facility] Start: 11-28-2023 End: 11-28-[address] Ignacio Townsend Work Phone: [facility] Work Phone: Start: 07-11-2023 End: 07-11-2023 ambulatory MD [facility] Plan of Treatment Date Care Activity Detail Author 24 Hour ECG [facility] Tilt table test [facility] Payers Date Payer Category Payer Self-pay [id number] 2023 Unknown [id number] 1977 Unknown [id number] Unknown [id number] Unknown [id number] Social History Date Type Detail Facility Start: 11-28-2023 [facility] Start: 2005 Sex Assigned At Female [facility] Evaluation note Note Date & Type Note Facility Evaluation note Diagnosis Onset Date Dizziness acute [facility] Work Phone: Summary Purpose Family History No Family History Records Found Relationship Condition Age at Onset Recorded Date/T rowan uncle Congenital anomaly of heart Unknown Advance Directives No Advanced Directives Records FoundNo Advanced Directives Records FoundNo Advanced Directives Records Found Chief Complaint and Reason for Visit Chief Complaint VERTIGO (WENGERD) Reason for Visit Dizziness Additional Source Comments INFORMATION SOURCE (unrecogn ized section and content) DATE CREATED AUTHOR 04/22/2019 [facility] DATE CREATED AUTHOR AUTHOR'S ORGANIZ ATION 07/15/2023 [facility] DATE CREATED AUTHOR AUTHOR'S ORGANIZ ATION 01/02/2024 [facility] Care Teams (unrecognized sec tion and content) Team Status: Active Member Role Status Dates Tiffani Mckeon DO Primary Care Provider Active Team Status: Inactive Member Role Status Dates Dr. Ignacio Townsend MD Referring Provider Active Dr. Gabe Olson MD Attending Provider Active Tiffani Mckeon DO Primary Care Provider Active Team Status: Inactive Member Role Status Dates Tiffani Mckeon DO Primary Care Provider Active Mary Sifuentes MD Attending Provider Active Goals (unrecognized section and content) Goals may be documented in a n alternate section FOR RECORDS PERTAINING TO PATIENTS WHO ARE OR HAVE BEEN ENROLLED IN A CHEMICAL DEPENDENCY/SUBSTANCEABUSE PROGRAM, SOME INFORMATION MAY BE OMITTED. This clinical summary was aggregated from multiple sources. Caution should be exercised in using it in the provision of clinical care. This summary normalizes information from multiple sources, and as a consequence, information in this document may materially change the coding, format and clinical context of patient data. In addition, data may be omitted in some cases. CLINICAL DECISIONS SHOULD BE BASED ON THE PRIMARY CLINICAL RECORDS. [employer] provides no warranty or guarantee of the accuracy or completeness of information in this document.
== END | disposition home or self-care (01) ==
LOC: MFPLAB 09:16
PROVIDERS: PCP Family Medicine; Referring Provider Family Medicine; Visit Provider Family Medicine
DX: Z13.220 Encounter for screening for lipoid disorders (principal); R53.83 Other fatigue; Z13.1 Encounter for screening for diabetes mellitus
CPT/HCPCS: 36415; 80053; 80061; 82306; 82728; 83540; 83550; 83735; 84443; 85025

== ENCOUNTER → 2025-07-28 | Outpatient (CLI) | payer OTHER, SELFPAY ==
--- NOTE | 2025-07-28 16:07 | RAD_ITS ---
PROCEDURE: CHEST PA AND LATERAL 07/28/2025 REASON FOR EXAM: CHEST PAIN TECHNIQUE: Procedure Code: RADCXR Modality: DX Procedure: CHEST PA AND LATERAL COMPARISON: None. RAD/Chest PA and Lateral IMPRESSION: Lungs appear clear throughout. No pleural effusion or pneumothorax is noted. The cardiomediastinal silhouette is normal in appearance. No significant osseous change is seen. Negative examination. Reading Location: [id number]
--- OUTSIDE RECORDS SUMMARY | 2025-07-28 16:23 | XMS RPT_ITS | CCD ---
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 Comment: Grazyna bethea Type: BLOOD SPECIMEN Ordering Facility: [facility] Address: [address] [place] [address] Result Comment: eAG: (Estimated average glucose) is a calculated value from HgbA1c and is dairy supplies sales representative of the average blood glucose level in the last 2-3 month period. Performed By: #### 5 5454-3 #### [facility] CLIA [id number] [address] [place] [address] [place] HbA1c (Bld) [Mass fraction] 5.0 % Normal 4.3-5.6 [facility] Comment on above: Order Comment: Grazyna bethea Type: BLOOD SPECIMEN Ordering Facility: [facility] Address: [address] [place] [address] Result Comment: [place] Diabetes Association guidelines indicate that patients with HgbA1c in the range 5.7-6.4% are at increased risk for development of diabetes, and intervention by lifestyle modification may be beneficial. HgbA1c greater or equal to 6.5% is considered diagnostic of diabetes. Performed By: #### 5 5454-3 #### [facility] CLIA [id number] [address] [place] [address] [place] LH SerPl-aCncon 03-20-2025 Lutropin Qn 10.7 m[IU]/mL Normal See comment [facility] Comment on above: Order Comment: Grazyna bethea Type: BLOOD SPECIMEN Ordering Facility: [facility] Address: [address] [place] [address] Result Comment: Refe rence range: Follicular: 2.4-12.6 mIU/mL Midcycle: 14.0-95.6 mIU/mL Luteal: 1.0-11.4 mIU/mL Post Nurys: 7.7-58.5 mIU/mL Performed By: #### D LIGIA, 00887-8, 2243-4, 77457-4 #### [facility] CLIA [id number] [address] [place] [address] [place] Prolactin SerPl-mCncon 03-20 Prolactin [Mass/Vol] 11.0 ng/mL Normal 4.4-33.8 [facility] Comment on above: Order Comment: Grazyna bethea Type: BLOOD SPECIMEN Ordering Facility: [facility] Address: [address] [place] [address] Result Comment: Prol actin test is performed using the [employer] Electrochemiluminescence Immunoassay method. Results obtained with different methods or kits cannot be used interchangeably. Performed By: #### 3 016-3, 2842-3 #### [facility] CLIA [id number] [address] [place] [address] [place] TSH SerPl-aCncon 03-20-2025 TSH Qn 4.570 m[IU]/L High 0.510-4.300 [facility] Comment on above: Order Comment: Grazyna bethea Type: BLOOD SPECIMEN Ordering Facility: [facility] Address: [address] [place] [address] Result Comment: If t he patient is , TSH reference range varies by gestational period: First Trimester (weeks 9-12): 0.180-2.990 mIU/L Second Trimester: 0.110-3.980 mIU/L Third Trimester: 0.480-4.710 mIU/L Ady Teran et al. A Practical Approach for the Verifications and Determination of Site- and Trimester-Specific Reference Intervals for Thyroid Function tests in . Thyroid, 2019:29:3:412-420. Corbin E, et al. 2017 Guidelines of the [place] Thyroid Association for the Diagnosis and Management of Thyroid Disease during and the . Thyroid, 2017:27:3:315-389. Reference ranges were not locally established for this patient's age group. The normal values are based on the following source: Regan Cameron V. Reference Ranges for Adults and Children: Pre-analytical Considerations. [facility] Performed By: #### 3 016-3, 2842-3 #### [facility] CLIA [id number] [address] [place] [address] [place] [facility] Absolute lymphocyte countOrd ered By: Mary Sifuentes on 03-10-2025 Lymphocytes Auto (Unsp spec) [#/Vol] 2.03 10*3/uL 0.83-4.51 [facility] Absolute neutrophil countOrd ered By: Mary Sifuentes on 03-10-2025 Neutrophils (Bld) [#/Vol] 3.5 10*3/uL 2.0-7.7 [facility] Anion gap in Serum or Plasma Ordered By: Mary Sifuentes on 03-10-2025 Anion gap [Moles/Vol] 11 mmol/L 5-15 [facility] Automated lymphocyte count a s percentage of total leukocytesOrdered By: Mary Sifuentes on 03-10-2025 Lymphocytes/100 WBC Auto (Unsp spec) 32.8 % 19-41 [facility] BUN/creatinine ratioOrdered By: [facility] 03-10-2025 Urea nitrogen/Creatinine [Mass ratio] 20.8 mg/mg High 10-20 [facility] Basophil percentageOrdered B y: Mary Sifuentes on 03-10-2025 Basophils/100 WBC (Bld) 0.8 % 0-1 [facility] Bilirubin, totalOrdered By: Mary Hallie on 03-10-2025 Bilirubin [Mass/Vol] 0.29 mg/dL 0.00-1.30 [facility] CBC W/Diff, Automatedon Absolute Lymph 2.03 X10 3/uL Normal 0.83-4.51 [facility] Comment on above: Order Comment: Order Date: 03/10/25 Order Info: 0184-1 - CBCD Performed By: #### L 503.6550, L500.4100, L501.9520, L100.0100, L500.4050, L501.5200, L503.6030 #### [facility] [address] [place], [address] Absolute Neut 3.5 X10 3/uL Normal 2.0-7.7 [facility] Comment on above: Order Comment: Order Date: 03/10/25 Order Info: 0184-1 - CBCD Performed By: #### L 503.6550, L500.4100, L501.9520, L100.0100, L500.4050, L501.5200, L503.6030 #### [facility] [address] [place], [address] Basophils/100 WBC (Bld) 0.8 % Normal 0-1 [facility] Comment on above: Order Comment: Order Date: 03/10/25 Order Info: 0184-1 - CBCD Performed By: #### L 503.6550, L500.4100, L501.9520, L100.0100, L500.4050, L501.5200, L503.6030 #### [facility] [address] [place], [address] Eosinophils/100 WBC (Bld) 1.3 % Normal 0-5 [facility] Comment on above: Order Comment: Order Date: 03/10/25 Order Info: 0184-1 - CBCD Performed By: #### L 503.6550, L500.4100, L501.9520, L100.0100, L500.4050, L501.5200, L503.6030 #### [facility] [address] [place], [address] Erythrocyte distribution width (RBC) [Ratio] 12.4 % Normal 11.6-14.6 [facility] Comment on above: Order Comment: Order Date: 03/10/25 Order Info: 0184-1 - CBCD Performed By: #### L 503.6550, L500.4100, L501.9520, L100.0100, L500.4050, L501.5200, L503.6030 #### [facility] [address] [place], [address] Hematocrit (Bld) [Volume fraction] 42.2 % Normal 37-47 [facility] Comment on above: Order Comment: Order Date: 03/10/25 Order Info: 0184-1 - CBCD Performed By: #### L 503.6550, L500.4100, L501.9520, L100.0100, L500.4050, L501.5200, L503.6030 #### [facility] [address] [place], [address] Hemoglobin (Bld) [Mass/Vol] 13.8 g/dL Normal 12.0-15.0 [facility] Comment on above: Order Comment: Order Date: 03/10/25 Order Info: 0184-1 - CBCD Performed By: #### L 503.6550, L500.4100, L501.9520, L100.0100, L500.4050, L501.5200, L503.6030 #### [facility] [address] [place], [address] IG% 0.500 Normal 0.0-0.9 [facility] Comment on above: Order Comment: Order Date: 03/10/25 Order Info: 0184-1 - CBCD Result Comment: IG% - Immature Granulocytes (promyelocytes, myelocytes and metamyelocytes) > 1% indicates that a LEFT SHIFT is Present. Performed By: #### L 503.6550, L500.4100, L501.9520, L100.0100, L500.4050, L501.5200, L503.6030 #### [facility] [address] [place], [address] Lymphocytes/100 WBC (Bld) 32.8 % Normal 19-41 [facility] Comment on above: Order Comment: Order Date: 03/10/25 Order Info: 0184-1 - CBCD Performed By: #### L 503.6550, L500.4100, L501.9520, L100.0100, L500.4050, L501.5200, L503.6030 #### [facility] [address] [place], [address] MCH (RBC) [Entitic mass] 28.9 pg Normal 27.0-32.0 [facility] Comment on above: Order Comment: Order Date: 03/10/25 Order Info: 0184-1 - CBCD Performed By: #### L 503.6550, L500.4100, L501.9520, L100.0100, L500.4050, L501.5200, L503.6030 #### [facility] [address] [place], [place], [id number] MCHC (RBC) [Mass/Vol] 32.7 g/dL Normal 32-36 [facility] Comment on above: Order Comment: Order Date: 03/10/25 Order Info: 0184-1 - CBCD Performed By: #### L 503.6550, L500.4100, L501.9520, L100.0100, L500.4050, L501.5200, L503.6030 #### [facility] [address] [place], [place], [address] MCV (RBC) [Entitic vol] 88.5 fL Normal 81-99 [facility] Comment on above: Order Comment: Order Date: 03/10/25 Order Info: 0184-1 - CBCD Performed By: #### L 503.6550, L500.4100, L501.9520, L100.0100, L500.4050, L501.5200, L503.6030 #### [facility] [address] [place], [address] Monocytes/100 WBC (Bld) 8.1 % Normal 0-10 [facility] Comment on above: Order Comment: Order Date: 03/10/25 Order Info: 0184-1 - CBCD Performed By: #### L 503.6550, L500.4100, L501.9520, L100.0100, L500.4050, L501.5200, L503.6030 #### [facility] [address] [place], [address] Neutrophils/100 WBC (Bld) 56.5 % Normal 47-70 [facility] Comment on above: Order Comment: Order Date: 03/10/25 Order Info: 0184-1 - CBCD Performed By: #### L 503.6550, L500.4100, L501.9520, L100.0100, L500.4050, L501.5200, L503.6030 #### [facility] [address] [place], [place], [address] (219) Nucleated RBC (Bld) [#/Vol] 0 10*3/uL Normal 0-5 [facility] Comment on above: Order Comment: Order Date: 03/10/25 Order Info: 0184-1 - CBCD Performed By: #### L 503.6550, L500.4100, L501.9520, L100.0100, L500.4050, L501.5200, L503.6030 #### [facility] [address] [place], [address] Platelet mean volume (Bld) [Entitic vol] 10.7 fL Normal 6.2-12.0 [facility] Comment on above: Order Comment: Order Date: 03/10/25 Order Info: 0184-1 - CBCD Performed By: #### L 503.6550, L500.4100, L501.9520, L100.0100, L500.4050, L501.5200, L503.6030 #### [facility] [address] [place], [address] Platelets (Bld) [#/Vol] 357 10*3/uL Normal 150-450 [facility] Comment on above: Order Comment: Order Date: 03/10/25 Order Info: 0184-1 - CBCD Performed By: #### L 503.6550, L500.4100, L501.9520, L100.0100, L500.4050, L501.5200, L503.6030 #### [facility] [address] [place], [address] RBC (Bld) [#/Vol] 4.77 10*6/uL Normal 4.2-5.4 [facility] Comment on above: Order Comment: Order Date: 03/10/25 Order Info: 0184-1 - CBCD Performed By: #### L 503.6550, L500.4100, L501.9520, L100.0100, L500.4050, L501.5200, L503.6030 #### [facility] [address] [place], [address] RDW SD 40.6 fl Normal 35.1-43.9 [facility] Comment on above: Order Comment: Order Date: 03/10/25 Order Info: 0184-1 - CBCD Performed By: #### L 503.6550, L500.4100, L501.9520, L100.0100, L500.4050, L501.5200, L503.6030 #### [facility] [address] [place], [address] WBC (Bld) [#/Vol] 6.2 10*3/uL Normal 4.4-11.0 [facility] Comment on above: Order Comment: Order Date: 03/10/25 Order Info: 0184-1 - CBCD Performed By: #### L 503.6550, L500.4100, L501.9520, L100.0100, L500.4050, L501.5200, L503.6030 #### [facility] [address] [place], [place], [address] Calculated very low density lipoprotein (VLDL) cholesterol measurementOrdered By: Mary Sifuentes on 03-10-2025 Calculated very low density lipoprotein (VLDL) cholesterol measurement 31 mg/dL 5-40 [facility] Carbon dioxide, total [Moles /volume] in Central venous bloodOrdered By: Mary Sifuentes on 03-10-2025 CO2 [Moles/Vol] 24.9 mmol/L 21.0-32.0 [facility] Chloride assayOrdered By: Zeke Sifuentes on 03-10-2025 Chloride [Moles/Vol] 105 mmol/L 98-108 [facility] Comprehensive Metabolic Prof ilon 03-10-2025 Albumin [Mass/Vol] 4.4 g/dL Normal 3.5-5.0 [facility] Comment on above: Order Comment: Order Date: 03/10/25 Order Info: 0786-1 - CMP Order Info: [id number] - LIPID Order Info: 59214-9 - MG Order Info: 3013 - TSH Order Info: 75934-0 - IBC Order Info: 2276-01 - DELMY Performed By: #### L 503.6550, L500.4100, L501.9520, L100.0100, L500.4050, L501.5200, L503.6030 #### [facility] [address] [place], [place], [address] Albumin/Globulin [Mass ratio] 1.4 {ratio} Normal 0.9-2.4 [facility] Comment on above: Order Comment: Order Date: 03/10/25 Order Info: 0786-1 - CMP Order Info: 10775-5 - LIPID Order Info: 48782-2 - MG Order Info: 3016-3 - TSH Order Info: 76276-4 - IBC Order Info: 2276-4 - DELMY Performed By: #### L 503.6550, L500.4100, L501.9520, L100.0100, L500.4050, L501.5200, L503.6030 #### [facility] [address] [place], [place], [address] ALK PHOS 112 U/L High 35-104 [facility] Comment on above: Order Comment: Order Date: 03/10/25 Order Info: 0786-1 - CMP Order Info: 01983-2 - LIPID Order Info: [id number] - MG Order Info: 3 - TSH Order Info: [id number] - IBC Order Info: 2275-4 - DELMY Performed By: #### L 503.6550, L500.4100, L501.9520, L100.0100, L500.4050, L501.5200, L503.6030 #### [facility] [address] [place], [place], [address] ALT [Catalytic activity/Vol] 36 U/L High <=34 [facility] Comment on above: Order Comment: Order Date: 03/10/25 Order Info: 785- - CMP Order Info: [id number] - LIPID Order Info: [id number] - MG Order Info: 3015-12 - TSH Order Info: - IBC Order Info: 4 - DELMY Performed By: #### L 503.6550, L500.4100, L501.9520, L100.0100, L500.4050, L501.5200, L503.6030 #### [facility] [address] [place], [place], [address] [phone] [Catalytic activity/Vol] 29 U/L Normal <=31 [facility] Comment on above: Order Comment: Order Date: 03/10/25 Order Info: 86-1 - CMP Order Info: [id number] - LIPID Order Info: [id number] - MG Order Info: 3 - TSH Order Info: - IBC Order Info: 2275-4 - DELMY Performed By: #### L 503.6550, L500.4100, L501.9520, L100.0100, L500.4050, L501.5200, L503.6030 #### [facility] [address] [place], [place], [address] Bilirubin [Mass/Vol] 0.29 mg/dL Normal 0.00-1.30 [facility] Comment on above: Order Comment: Order Date: 03/10/25 Order Info: 785-1 - CMP Order Info: [id number] - LIPID Order Info: [id number] - MG Order Info: 3 - TSH Order Info: - IBC Order Info: 2275-4 - DELMY Performed By: #### L 503.6550, L500.4100, L501.9520, L100.0100, L500.4050, L501.5200, L503.6030 #### [facility] [address] [place], [place], [id number] BUN/CRE 20.8 RATIO High 10-20 [facility] Comment on above: Order Comment: Order Date: 03/10/25 Order Info: 785- - CMP Order Info: [id number] - LIPID Order Info: [id number] - MG Order Info: 3 - TSH Order Info: - IBC Order Info: 2275-4 - DELMY Performed By: #### L 503.6550, L500.4100, L501.9520, L100.0100, L500.4050, L501.5200, L503.6030 #### [facility] [address] [place], [place], [phone] Calcium [Mass/Vol] 9.5 mg/dL Normal 7.6-11.0 [facility] Comment on above: Order Comment: Order Date: 03/10/25 Order Info: 86-1 - CMP Order Info: [id number] - LIPID Order Info: [id number] - MG Order Info: 3 - TSH Order Info: 76785-1 - IBC Order Info: 6-4 - DELMY Performed By: #### L 503.6550, L500.4100, L501.9520, L100.0100, L500.4050, L501.5200, L503.6030 #### [facility] [address] [place], [address] Chloride [Moles/Vol] 105 mmol/L Normal 98-108 [facility] Comment on above: Order Comment: Order Date: 03/10/25 Order Info: 86-1 - CMP Order Info: [id number] - LIPID Order Info: [id number] - MG Order Info: 3015-3 - TSH Order Info: - IBC Order Info: 2275-4 - DELMY Performed By: #### L 503.6550, L500.4100, L501.9520, L100.0100, L500.4050, L501.5200, L503.6030 #### [facility] [address] [place], [address] CO2 [Moles/Vol] 24.9 mmol/L Normal 21.0-32.0 [facility] Comment on above: Order Comment: Order Date: 03/10/25 Order Info: 785-1 - CMP Order Info: [id number] - LIPID Order Info: [id number] - MG Order Info: 3 - TSH Order Info: - IBC Order Info: 2275-4 - DELMY Performed By: #### L 503.6550, L500.4100, L501.9520, L100.0100, L500.4050, L501.5200, L503.6030 #### [facility] [address] [place], [address] Creatinine [Mass/Vol] 0.91 mg/dL Normal 0.70-1.20 [facility] Comment on above: Order Comment: Order Date: 03/10/25 Order Info: 0786-1 - CMP Order Info: [id number] - LIPID Order Info: 32942-9 - MG Order Info: 3015-3 - TSH Order Info: 31338-1 - IBC Order Info: 6-4 - DELMY Performed By: #### L 503.6550, L500.4100, L501.9520, L100.0100, L500.4050, L501.5200, L503.6030 #### [facility] [address] [place], [address] GAP 11 Normal 5-15 [facility] Comment on above: Order Comment: Order Date: 03/10/25 Order Info: 07-1 - CMP Order Info: 06525-1 - LIPID Order Info: [id number] - MG Order Info: 3015-3 - TSH Order Info: [id number] - IBC Order Info: 2275-4 - DELMY Performed By: #### L 503.6550, L500.4100, L501.9520, L100.0100, L500.4050, L501.5200, L503.6030 #### [facility] [address] [place], [place], [phone] (637) GFR/1.73 sq M.predicted among non-blacks MDRD (S/P/Bld) [Vol rate/Area] 93 mL/min/{1.73_m2} Normal >60 [facility] Comment on above: Order Comment: Order Date: 03/10/25 Order Info: 785- - CMP Order Info: [id number] - LIPID Order Info: [id number] - MG Order Info: 3 - TSH Order Info: 11439-5 - IBC Order Info: 4 - DELMY Result Comment: mL/m in/1.73m2 CKD-EPI Creatinine Equation (2020) Performed By: #### L 503.6550, L500.4100, L501.9520, L100.0100, L500.4050, L501.5200, L503.6030 #### [facility] [address] [place], [address] Globulin (S) [Mass/Vol] 3.1 g/dL Normal 2.2-4.2 [facility] Comment on above: Order Comment: Order Date: 03/10/25 Order Info: 07-1 - CMP Order Info: [id number] - LIPID Order Info: [id number] - MG Order Info: 3 - TSH Order Info: [id number] - IBC Order Info: 4 - DELMY Performed By: #### L 503.6550, L500.4100, L501.9520, L100.0100, L500.4050, L501.5200, L503.6030 #### [facility] [address] [place], [address] Glucose [Mass/Vol] 90 mg/dL Normal 70-99 [facility] Comment on above: Order Comment: Order Date: 03/10/25 Order Info: 0786-1 - CMP Order Info: [id number] - LIPID Order Info: [id number] - MG Order Info: 3015-12 - TSH Order Info: - IBC Order Info: 4 - DELMY Performed By: #### L 503.6550, L500.4100, L501.9520, L100.0100, L500.4050, L501.5200, L503.6030 #### [facility] [address] [place], [address] Potassium [Moles/Vol] 4.3 mmol/L Normal 3.3-5.1 [facility] Comment on above: Order Comment: Order Date: 03/10/25 Order Info: 0786-1 - CMP Order Info: [id number] - LIPID Order Info: [id number] - MG Order Info: 3015-12 - TSH Order Info: [id number] - IBC Order Info: 4 - DELMY Performed By: #### L 503.6550, L500.4100, L501.9520, L100.0100, L500.4050, L501.5200, L503.6030 #### [facility] [address] [place], [address] Sodium [Moles/Vol] 141 mmol/L Normal 133-145 [facility] Comment on above: Order Comment: Order Date: 03/10/25 Order Info: 0786-1 - CMP Order Info: - LIPID Order Info: [id number] - MG Order Info: 3 - TSH Order Info: - IBC Order Info: 4 - DELMY Performed By: #### L 503.6550, L500.4100, L501.9520, L100.0100, L500.4050, L501.5200, L503.6030 #### [facility] [address] [place], [place], [id number] T PROT 7.6 g/dL Normal 5.9-8.4 [facility] Comment on above: Order Comment: Order Date: 03/10/25 Order Info: 1 - CMP Order Info: - LIPID Order Info: [id number] - MG Order Info: 3015-12 - TSH Order Info: - IBC Order Info: 4 - DELMY Performed By: #### L 503.6550, L500.4100, L501.9520, L100.0100, L500.4050, L501.5200, L503.6030 #### [facility] [address] [place], [place], [id number] Urea nitrogen [Mass/Vol] 19 mg/dL Normal 4-19 [facility] Comment on above: Order Comment: Order Date: 03/10/25 Order Info: 785-10 - CMP Order Info: - LIPID Order Info: [id number] - MG Order Info: 3015-12 - TSH Order Info: - IBC Order Info: 4 - DELMY Performed By: #### L 503.6550, L500.4100, L501.9520, L100.0100, L500.4050, L501.5200, L503.6030 #### [facility] [address] [place], [place], [id number] Eosinophil percentageOrdered By: Mary Sifuentes on 03-10-2025 Eosinophils/100 WBC (Bld) 1.3 % 0-5 [facility] Erythrocyte distribution wid th ratioOrdered By: Mary Sifuentes on 03-10-2025 Erythrocyte distribution width (RBC) [Ratio] 12.4 % 11.6-14.6 [facility] Erythrocyte distribution wid th standard deviationOrdered By: Mary Sifuentes on 03-10-2025 Erythrocyte distribution width (RBC) [Ratio] 40.6 fl 35.1-43.9 [facility] Ferritinon 03-10-2025 Ferritin [Mass/Vol] 27 ng/mL Normal 22-378 [facility] Comment on above: Order Comment: Order Date: 03/10/25 Order Info: 0786-1 - CMP Order Info: [id number] - LIPID Order Info: [id number] - MG Order Info: 3016-3 - TSH Order Info: [id number] - IBC Order Info: 2276-4 - DELMY Performed By: #### L 503.6550, L500.4100, L501.9520, L100.0100, L500.4050, L501.5200, L503.6030 #### [facility] [address] [place] [address]. [place], [address] Glomerular filtration rate ( GFR) estimation/1.73 sq m using serum, plasma, or whole bOrdered By: Mary Sifuentes on 03-10-2025 GFR/1.73 sq M.predicted among non-blacks MDRD (S/P/Bld) [Vol rate/Area] 93 mL/min/{1.73_m2} >60 [facility] Comment on above: mL/min/1.73m2 CKD-EP I Creatinine Equation (2020) Hematocrit Auto (Bld) [Volum e fraction]Ordered By: Mary Sifuentes on 03-10-2025 Hematocrit (Bld) [Volume fraction] 42.2 % 37-47 [facility] Hemoglobin measurementOrdere d By: Mary Sifuentes on 03-10-2025 Hemoglobin (Bld) [Mass/Vol] 13.8 g/dL 12.0-15.0 [facility] Immature granulocytes/100 WB C Auto (Bld)Ordered By: Mary Sifuentes on 03-10-2025 Immature granulocytes/100 WBC (Bld) 0.500 % 0.0-0.9 [facility] Comment on above: IG% - Immature Granu locytes (promyelocytes, myelocytes and metamyelocytes) > 1% indicates that a LEFT SHIFT is Present. Iron measurement (mass/mass) Ordered By: Mary Sifuentes on 03-10-2025 Iron (Unsp spec) [Mass/Mass] 66 ug/dL 50-170 [facility] Iron+Iron Binding Capacityon 03-10-2025 Iron [Mass/Vol] 66 ug/dL Normal 50-170 [facility] Comment on above: Order Comment: Order Date: 03/10/25 Order Info: [id number] - CMP Order Info: [id number] - LIPID Order Info: [id number] - MG Order Info: 3 - TSH Order Info: [id number] - IBC Order Info: [id number] - DELMY Performed By: #### L 503.6550, L500.4100, L501.9520, L100.0100, L500.4050, L501.5200, L503.6030 #### [facility] [address] [place], [place], [id number] IRON SATURATION 19.0 Normal 13-59 [facility] Comment on above: Order Comment: Order Date: 03/10/25 Order Info: [id number] - CMP Order Info: [id number] - LIPID Order Info: [id number] - MG Order Info: 3 - TSH Order Info: [id number] - IBC Order Info: [id number] - DELMY Performed By: #### L 503.6550, L500.4100, L501.9520, L100.0100, L500.4050, L501.5200, L503.6030 #### [facility] [address] [place], [place], [id number] TIBC 341 ug/dL Normal 250-450 [facility] Comment on above: Order Comment: Order Date: 03/10/25 Order Info: [id number] - CMP Order Info: [id number] - LIPID Order Info: [id number] - MG Order Info: 3 - TSH Order Info: [id number] - IBC Order Info: [id number] - DELMY Performed By: #### L 503.6550, L500.4100, L501.9520, L100.0100, L500.4050, L501.5200, L503.6030 #### [facility] [address] [place], [place], [id number] UIBC 275 ug/dL Normal 228-428 [facility] Comment on above: Order Comment: Order Date: 03/10/25 Order Info: [id number] - CMP Order Info: [id number] - LIPID Order Info: [id number] - MG Order Info: [id number] - TSH Order Info: [id number] - IBC Order Info: [id number] - DELMY Performed By: #### L 503.6550, L500.4100, L501.9520, L100.0100, L500.4050, L501.5200, L503.6030 #### [facility] [address] [place], [place], [address] LDL calc ser/plasOrdered By: Mary Sifuentes on 03-10-2025 Cholesterol in LDL [Mass/Vol] 132 mg/dL [facility] Comment on above: Paejmkxgfm=611-664 m g/dL & Higher Enea=144 mg/dL or greater Laboratory - Chemistry and C hemistry - challengeOrdered By: Mary Sifuentes on 03-10-2025 AST [Catalytic activity/Vol] 29 U/L <32 [facility] Lipid Profileon 03-10-2025 CHOL:HDL 3.93 Normal [facility] Comment on above: Order Comment: Order Date: 03/10/25 Order Info: [id number] - CMP Order Info: [id number] - LIPID Order Info: [id number] - MG Order Info: [id number] - TSH Order Info: - IBC Order Info: [id number] - DELMY Performed By: #### L 503.6550, L500.4100, L501.9520, L100.0100, L500.4050, L501.5200, L503.6030 #### [facility] [address] [place], [place], [address] Cholesterol [Mass/Vol] 219 mg/dL High <=190 [facility] Comment on above: Order Comment: Order Date: 03/10/25 Order Info: [id number] - CMP Order Info: [id number] - LIPID Order Info: [id number] - MG Order Info: [id number] - TSH Order Info: [id number] - IBC Order Info: [id number] - DELMY Result Comment: Chol esterol level, Desirable <200 mg/dL Borderline high cholesterol 200-239 mg/dL High cholesterol >=240 mg/dL Recommendations of the NCEP Adult Treatment Panel for the following risk-cutoff thresholds for the [place] population. Performed By: #### L 503.6550, L500.4100, L501.9520, L100.0100, L500.4050, L501.5200, L503.6030 #### [facility] [address] [place], [address] Cholesterol in HDL [Mass/Vol] 56 mg/dL Normal [facility] Comment on above: Order Comment: Order Date: 03/10/25 Order Info: [id number] - CMP Order Info: [id number] - LIPID Order Info: [id number] - MG Order Info: 3 - TSH Order Info: [id number] - IBC Order Info: [id number] - DELMY Result Comment: [place] on[place] Cholesterol Education Program (NCEP) guidelines: <40 mg/dL: Low HDL-cholesterol (major risk factor for CHD) >= 60 mg/dL: High HDL-cholesterol (negative risk factor for CHD) HDL-cholesterol is affected by a number of factors, e.g. smoking, exercise, hormones, sex and age. Performed By: #### L 503.6550, L500.4100, L501.9520, L100.0100, L500.4050, L501.5200, L503.6030 #### [facility] [address] [place], [address] Cholesterol in LDL [Mass/Vol] 132 mg/dL Normal [facility] Comment on above: Order Comment: Order Date: 03/10/25 Order Info: [id number] - CMP Order Info: - LIPID Order Info: [id number] - MG Order Info: [id number] - TSH Order Info: - IBC Order Info: [id number] - DELMY Result Comment: Bord xqfqte=328-702 mg/dL Higher Czdb=948 mg/dL or greater Performed By: #### L 503.6550, L500.4100, L501.9520, L100.0100, L500.4050, L501.5200, L503.6030 #### [facility] [address] [place], [place], [id number] Cholesterol in VLDL [Mass/Vol] 31 mg/dL Normal 5-40 [facility] Comment on above: Order Comment: Order Date: 03/10/25 Order Info: [id number] - CMP Order Info: - LIPID Order Info: [id number] - MG Order Info: [id number] - TSH Order Info: - IBC Order Info: [id number] - DELMY Performed By: #### L 503.6550, L500.4100, L501.9520, L100.0100, L500.4050, L501.5200, L503.6030 #### [facility] [address] [place], [place], [id number] Triglyceride [Mass/Vol] 156 mg/dL Normal [facility] Comment on above: Order Comment: Order Date: 03/10/25 Order Info: 07- - CMP Order Info: - LIPID Order Info: [id number] - MG Order Info: [id number] - TSH Order Info: - IBC Order Info: [id number] - DELMY Result Comment: The drugs N-Acetylcysteine and Metamizole may falsely depress this assay. Normal range: <150 mg/dL Borderline High: 150-199 mg/dL High: 200-499 mg/dL Very High: >500 mg/dL Performed By: #### L 503.6550, L500.4100, L501.9520, L100.0100, L500.4050, L501.5200, L503.6030 #### [facility] [address] [place], [place], [id number] MCV (mean corpuscular volume ) determinationOrdered By: Mary Sifuentes on 03-10-2025 MCV (RBC) [Entitic vol] 88.5 fL 81-99 [facility] Magnesiumon 03-10-2025 Magnesium [Mass/Vol] 2.1 mg/dL Normal 1.5-2.2 [facility] Comment on above: Order Comment: Order Date: 03/10/25 Order Info: [id number] - CMP Order Info: [id number] - LIPID Order Info: [id number] - MG Order Info: [id number] - TSH Order Info: [id number] - IBC Order Info: [id number] - DELMY Performed By: #### L 503.6550, L500.4100, L501.9520, L100.0100, L500.4050, L501.5200, L503.6030 #### [facility] [address] [place], [place], [address] Magnesium measurement (mass/ volume)Ordered By: Mary Sifuentes on 03-10-2025 Magnesium (Unsp spec) [Mass/Vol] 2.1 mg/dL 1.5-2.2 [facility] Mean corpuscular hemoglobin (MCH) determinationOrdered By: Mary Sifuentes on 03-10-2025 MCH (RBC) [Entitic mass] 28.9 pg 27.0-32.0 [facility] Mean corpuscular hemoglobin concentration (MCHC) determinationOrdered By: Mary Sifuentes on 03-10-2025 MCHC (RBC) [Mass/Vol] 32.7 g/dL 32-36 [facility] Mean platelet volume determi nationOrdered By: Mary Sifuentes on 03-10-2025 Platelet mean volume (Bld) [Entitic vol] 10.7 fL 6.2-12.0 [facility] Monocyte percentageOrdered B y: Mary Sifuentes on 03-10-2025 Monocytes/100 WBC (Bld) 8.1 % 0-10 [facility] Neutrophil percentageOrdered By: Mary Sifuentes on 03-10-2025 Neutrophils/100 WBC (Bld) 56.5 % 47-70 [facility] No Panel InformationOrdered By: Mary Sifuentes on 03-10-2025 Unsaturated Iron Binding Capacity 275 ug/dL 228-428 [facility] Nucleated red blood cell per centageOrdered By: Mary Sifuentes on 03-10-2025 Nucleated RBC/100 WBC (Bld) [Ratio] 0 % 0-5 [facility] Platelet countOrdered By: Zeke Sifuentes on 03-10-2025 Platelets (Bld) [#/Vol] 357 10*3/uL 150-450 [facility] Potassium measurement (mass/ volume)Ordered By: Mary Sifuentes on 03-10-2025 Potassium (Unsp spec) [Mass/Vol] 4.3 mmol/L 3.3-5.1 [facility] RBC Auto (Bld) [#/Vol]Ordere d By: Mary Sifuentes on 03-10-2025 RBC (Bld) [#/Vol] 4.77 10*6/uL 4.2-5.4 [facility] Screening total cholesterol/ high density lipoprotein (HDL) cholesterol ratioOrdered By: Mary Sifuentes on 03-10-2025 Cholesterol.total/Chol esterol in HDL [Mass ratio] 3.93 {ratio} [facility] Serum creatinine measurement (mass/volume)Ordered By: Mary Sifuentes on 03-10-2025 Creatinine [Mass/Vol] 0.91 mg/dL 0.70-1.20 [facility] Serum globulin measurementOr dered By: Mary Sifuentes on 03-10-2025 Globulin (S) [Mass/Vol] 3.1 g/dL 2.2-4.2 [facility] Serum glucose measurement (m ass/volume)Ordered By: Mary Sifuentes on 03-10-2025 Glucose [Mass/Vol] 90 mg/dL 70-99 [facility] Serum or plasma alanine suero otransferase (ALT) measurementOrdered By: Mary Sifuentes on 03-10-2025 ALT [Catalytic activity/Vol] 36 U/L High <35 [facility] Serum or plasma albumin suzan urement (mass/volume)Ordered By: Mary Sifuentes on 03-10-2025 Albumin [Mass/Vol] 4.4 g/dL 3.5-5.0 [facility] Serum or plasma albumin/glob ulin mass ratioOrdered By: Mary Hallie on 03-10-2025 Albumin/Globulin [Mass ratio] 1.4 {ratio} 0.9-2.4 [facility] Serum or plasma alkaline jamaal sphatase measurementOrdered By: Mary Sifuentes on 03-10-2025 ALP [Catalytic activity/Vol] 112 U/L High 35-104 [facility] Serum or plasma calcium suzan urement (mass/volume)Ordered By: aMry Sifuentes on 03-10-2025 Calcium [Mass/Vol] 9.5 mg/dL 7.6-11.0 [facility] Serum or plasma cholesterol in HDL measurement (mass/volume)Ordered By: Mary Sifuentes on 03-10-2025 Cholesterol in HDL [Mass/Vol] 56 mg/dL >40 [facility] Comment on above: National Cholesterol Education Program (NCEP) guidelines:<40 mg/dL: Low HDL-cholesterol (major risk factor for CHD)>= 60 mg/dL: High HDL-cholesterol (negative risk factor for CHD)HDL-cholesterol is affected by a number of factors, e.g. smoking, exercise, hormones, sex and age. Serum or plasma cholesterol measurement (mass/volume)Ordered By: Mary Sifuentes on 03-10-2025 Cholesterol [Mass/Vol] 219 mg/dL High <191 [facility] Comment on above: Cholesterol level, D esirable <200 mg/dLBorderline high cholesterol 200-239 mg/dLHigh cholesterol >=240 mg/dLRecommendations of the NCEP Adult Treatment Panel for the following risk-cutoff thresholds for the [place] population. Serum or plasma ferritin delmi surement (mass/volume)Ordered By: Mary Sifuentes on 03-10-2025 Ferritin [Mass/Vol] 27 ng/mL 22-378 [facility] Serum or plasma iron saturat ion measurement (mass fraction)Ordered By: Mary Sifuentes on 03-10-2025 Iron saturation [Mass fraction] 19.0 % 13-59 [facility] Serum or plasma urea nitroge n measurement (mass/volume)Ordered By: Mary Sifuentes on 03-10-2025 Urea nitrogen [Mass/Vol] 19 mg/dL 4-19 [facility] Sodium levelOrdered By: Sarwat emily Hallie on 03-10-2025 Sodium [Moles/Vol] 141 mmol/L 133-145 [facility] TSH DL <= 0.005 mIU/L QnOrde red By: Mary Sifuentes on 03-10-2025 TSH Qn 3.340 uIU/mL 0.500-4.300 [facility] Thyroid Stim Hormone (TSH)on 03-10-2025 TSH 3.340 uIU/mL Normal 0.500-4.300 [facility] Comment on above: Order Comment: Order Date: 03/10/25 Order Info: [id number] - CMP Order Info: [id number] - LIPID Order Info: [id number] - MG Order Info: [id number] - TSH Order Info: [id number] - IBC Order Info: [id number] - DELMY Performed By: #### L 503.6550, L500.4100, L501.9520, L100.0100, L500.4050, L501.5200, L503.6030 #### [facility] [address] [place], [address] Total proteinOrdered By: Radha Sifuentes on 03-10-2025 Protein [Mass/Vol] 7.6 g/dL 5.9-8.4 [facility] Triglycerides measurementOrd ered By: Mary Sifuentes on 03-10-2025 Triglyceride [Mass/Vol] 156 mg/dL <199 [facility] Comment on above: The drugs N-Acetylcy steine and Metamizole may falsely depress this assay. Normal range: <150 mg/dLBorderline High: 150-199 mg/dLHigh: 200-499 mg/dLVery High: >500 mg/dL Vitamin D,25 Hydroxyon 03-10 Vitamin D 25-OH 21.9 ng/mL Low 30-100 [facility] Comment on above: Order Comment: Order Date: 03/10/25 Order Info: [id number] - CMP Order Info: [id number] - LIPID Order Info: [id number] - MG Order Info: [id number] - TSH Order Info: [id number] - IBC Order Info: [id number] - DELMY Result Comment: Ting min D Status Deficiency: <20 ng/mL (50nmol/L) Insufficiency: 20-30 ng/mL (50-75 nmol/L) Sufficiency: 30-100 ng/mL (75-250 nmol/L) Toxicity: >100 ng/mL (>250 nmol/L) Performed By: #### L 506.1001 #### [facility] [address] [place], [place], [id number] White blood cell (WBC) count Ordered By: Mary Sifuentes on 03-10-2025 WBC (Bld) [#/Vol] 6.2 10*3/uL 4.4-11.0 [facility] Absolute lymphocyte countOrd ered By: Mary Sifuentes on 12-26-2023 Lymphocytes Auto (Unsp spec) [#/Vol] 2.12 10*3/uL 0.83-4.51 [facility] Automated lymphocyte count a s percentage of total leukocytesOrdered By: Mary Sifuentes on 12-26-2023 Lymphocytes/100 WBC Auto (Unsp spec) 29.4 % 25-45 [facility] Basophil percentageOrdered B y: Mary Sifuentes on 12-26-2023 Basophils/100 WBC (Bld) 0.7 % 0-1 [facility] Bilirubin [Mass/Vol] 0.40 mg/dL 0.20-1.00 [facility] Comment on above: For patients on eltr ombopag therapy, use of Dimension Luck TBIL is not recommended. Chloride [Moles/Vol] 105 mmol/L 98-107 [facility] Eosinophils/100 WBC (Bld) 1.1 % 0-3 [facility] Glucose [Mass/Vol] 96 mg/dL 74-106 [facility] Hemoglobin (Bld) [Mass/Vol] 14.1 g/dL 12.0-15.0 [facility] Monocytes/100 WBC (Bld) 6.9 % 3-6 [facility] Neutrophils (Bld) [#/Vol] 4.5 10*3/uL 2.0-7.7 [facility] Neutrophils/100 WBC (Bld) 61.6 % 34-64 [facility] Potassium [Moles/Vol] 4.2 mmol/L 3.5-5.1 [facility] Protein [Mass/Vol] 8.1 g/dL 6.4-8.2 [facility] Sodium [Moles/Vol] 139 mmol/L 136-145 [facility] WBC (Bld) [#/Vol] 7.2 10*3/uL 4.5-13.0 [facility] Determination of erythrocyte mean corpuscular volume (MCV)Ordered By: Mary Sifuentes on 12-26-2023 MCV (RBC) [Entitic vol] 88.6 fL 78-96 [facility] Erythrocyte distribution wid th ratioOrdered By: [facility] on 12-26-2023 Erythrocyte distribution width (RBC) [Ratio] 12.2 % 11.6-14.6 [facility] Erythrocyte distribution wid th standard deviationOrdered By: [facility]23 Erythrocyte distribution width (RBC) [Entitic vol] 39.5 fL 35.1-43.9 [facility] Hematocrit Auto (Bld) [Volum e fraction]Ordered By: [facility] on 12-26-2023 Hematocrit (Bld) [Volume fraction] 44.4 % 37-46 [facility] Immature granulocytes/100 WB C Auto (Bld)Ordered By: [facility] 12-26-2023 Immature granulocytes/100 WBC (Bld) 0.300 % 0.0-0.9 [facility] Comment on above: IG% - Immature Granu locytes (promyelocytes, myelocytes and metamyelocytes) > 1% indicates that a LEFT SHIFT is Present. Laboratory - Chemistry and C hemistry - challengeOrdered By: [facility] on 12-26-2023 Albumin/Globulin [Mass ratio] 1.0 {ratio} 0.9-2.4 [facility] ALP [Catalytic activity/Vol] 116 U/L 47-119 [facility] ALT [Catalytic activity/Vol] 25 U/L 13-56 [facility] CO2 [Moles/Vol] 28.0 mmol/L 21.0-32.0 [facility] Globulin (S) [Mass/Vol] 4.1 g/dL 2.2-4.2 [facility] Urea nitrogen/Creatinine [Mass ratio] 19.4 mg/mg 10- [facility] Laboratory - Hematology and Cell countsOrdered By: Mary Sifuentes on 12-26-2023 MCH (RBC) [Entitic mass] 28.1 pg 25.0-35.0 [facility] MCHC (RBC) [Mass/Vol] 31.8 g/dL - [facility] Nucleated RBC/100 WBC (Bld) [Ratio] 0 % 0-5 [facility] Platelet mean volume (Bld) [Entitic vol] 10.9 fL 6.2-12.0 [facility] Platelets (Bld) [#/Vol] 375 10*3/uL 150-450 [facility] No Panel InformationOrdered By: Mary Sifuentes on 12-26-2023 Anti-Nuclear Antibody Screen Negative Negative [facility] Comment on above: Performed at: [facility] [employer] [facility] [address] Director: Jamey Borja PhD, Phone: [phone] Estimated GFR (MDRD) Amer 95 mL/min >60 [facility] Comment on above: GFR Calc Estimated GFR (MDRD) Non-Af Amer 78 mL/min >60 [facility] Comment on above: Non- GFR Calc Folate 22.20 ng/mL 3.1-55.4 [facility] Comment on above: Slight Hemolysis, Re sult may be falsely increased. Vitamin D 25-Hydroxy 34.0 ng/mL [facility] Comment on above: Vitamin D 25(OH) Sta tus Range Deficiency <20 ng/mL (50nmol/L) Insufficiency 20 - 30 ng/mL (50 - 75 nmol/L) Sufficiency 30 - 100 ng/mL (75 - 250 nmol/L) Toxicity >100 ng/mL (>250 nmol/L) RBC Auto (Bld) [#/Vol]Ordere d By: Mary Sifuentes on 12-26-2023 RBC (Bld) [#/Vol] 5.01 10*6/uL 4.1-4.8 [facility] Serum or plasma calcium suzan urement (mass/volume)Ordered By: Mary Sifuentes on 12-26-2023 Calcium [Mass/Vol] 9.5 mg/dL 8.5-10.1 [facility] Serum or plasma choriogonado tropin detectionOrdered By: Mary Sifuentes on 12-26-2023 HCG ( test) Ql Negative [facility] Serum or plasma creatinine m easurement (mass/volume)Ordered By: Mary Sifuentes on 12-26-2023 Creatinine [Mass/Vol] 0.98 mg/dL 0.55-1.02 [facility] Comment on above: The validity of the calculated GFR & GFRAA in patients over 70 years has not been determined. Clinical correlation is essential. Serum or plasma thyroid stim ulating hormone (TSH) measurement (units/volume)Ordered By: Mary Sifuentes on 12-26-2023 TSH Qn 2.70 uIU/mL 0.358-3.74 [facility] Serum or plasma urea nitroge n measurement (mass/volume)Ordered By: Mary Sifuentes on 12-26-2023 Urea nitrogen [Mass/Vol] 19 mg/dL 7-18 [facility] Thin prep Papanicolaou smear with manual screeningOrdered By: Mary Sifuentes on 12-26-2023 Thin prep Papanicolaou smear with manual screening 4.0 g/dL 3.2-5.0 [facility] Thin prep Papanicolaou smear with manual screening 21 U/L 15-37 [facility] Thin prep Papanicolaou smear with manual screening 6 5-15 [facility] Whole blood hemoglobin A1c/t otal hemoglobin ratio (mass fraction)Ordered By: Mary Sifuentes on 12-26-2023 HbA1c (Bld) [Mass fraction] 5.1 % 3.8-5.6 [facility] Comment on above: Normal < 5.7 % Predi abetic 5.7 - 6.4 % Diabetic >or= 6.5 % Please note range changes. Vital Signs Date Time Vital Sign Value Performing Clinician Joon qureshi 04-23-2025 07:47-0400 Body mass index (BMI) [Ratio] 35.94 kg/m2 Nancy [place] [employer] [facility] Work Phone: [facility] 04-23-2025 07:47-0400 Body weight 107.23 kg Nancy Sil [facility] Work Phone: [facility] 04-23-2025 07:47-0400 Diastolic blood pressure 68 mm[Hg] Nancy Sil [facility] Work Phone: [facility] 04-23-2025 07:47-0400 Systolic blood pressure 124 mm[Hg] Nancy [place] [facility] Work Phone: [facility] 04-16-2025 14:52-0400 Body height 172.7 cm Lien Kitchen MD Work Phone: [facility] 04-16-2025 14:52-0400 Body mass index (BMI) [Ratio] 36.19 kg/m2 Lien Kitchen MD Work Phone: [facility] 04-16-2025 14:52-0400 Body weight 107.96 kg Lien Kitchen MD Work Phone: [facility] 04-16-2025 14:52-0400 Diastolic blood pressure 68 mm[Hg] Lien Kitchen MD Work Phone: [facility] 04-16-2025 14:52-0400 Heart rate 68 /min Lien Kitchen MD Work Phone: [facility] 04-16-2025 14:52-0400 Respiratory rate 16 /min Lien Kitchen MD Work Phone: [facility] 04-16-2025 14:52-0400 SaO2% (BldA) [Mass fraction] 99 % Lien Kitchen MD Work Phone: [facility] 04-16-2025 14:52-0400 Systolic blood pressure 120 mm[Hg] iLen Kitchen MD Work Phone: [facility] 03-20-2025 07:15-0400 Body height 171.5 cm Nancy Sil [facility] Work Phone: [facility] 03-20-2025 07:15-0400 Body mass index (BMI) [Ratio] 36.57 kg/m2 Nancy Sil [facility] Work Phone: [facility] 03-20-2025 07:15-0400 Body weight 107.5 kg Nancy [place] [facility] Work Phone: [facility] 11-28-2023 15:11-0500 Body height 172.[address] Ignacio Townsend Work Phone: [facility] 11-28-2023 15:11-0500 Body mass index (BMI) [Percentile] Per age and sex 96.5 % Dr. Ignacio Townsend Work Phone: [facility] 11-28-2023 15:11-0500 Body mass index (BMI) [Ratio] 32.4 kg/m2 Dr. Ignacio Townsend Work Phone: [facility] 11-28-2023 15:11-0500 Body weight 96.[address] Ignacio Townsend Work Phone: [facility] 11-28-2023 15:11-0500 Diastolic blood pressure 73 mm[Hg] Dr. Ignacio Townsend Work Phone: [facility] 11-28-2023 15:11-0500 Heart rate 65 /min Dr. Ignacio Townsend Work Phone: [facility] 11-28-2023 15:11-0500 Respiratory rate 14 /min Dr. Ignacio Townsend Work Phone: [facility] 11-28-2023 15:11-0500 Systolic blood pressure 110 mm[Hg] Dr. Ignacio Townsend Work Phone: [facility] Encounters Encounter Date Encounter Type Care Provider Facility Start: 05-12-2025 End: 05-12-2025 Telemedicine consultation with patient Nancy Sil [facility] Work Phone: OB/Gynecology Start: 05-12-2025 End: 05-12-2025 ambulatory Nancy [place] [facility] Work Phone: OB/Gynecology Comment on above: Encounter for survei llance of contraceptive pills (Primary Dx); Dysmenorrhea; Adverse effect of oral contraceptives, initial encounter Start: 04-23-2025 End: 04-23-2025 Patient encounter procedure Nancy Sil [facility] Work Phone: OB/Gynecology Comment on above: Irregular menstrual cycle (Primary Dx); Encounter for initial prescription of contraceptive pills; Menorrhagia with irregular cycle Start: 04-23-2025 End: 04-23-2025 ambulatory NANCY SIL Facility:[facility] Start: 04-16-2025 End: 04-16-2025 Patient encounter procedure Lien Kitchen MD Work Phone: Endocrinology Comment on above: Irregular periods/me nstrual cycles (Primary Dx); Elevated TSH Start: 04-16-2025 End: 04-16-2025 ambulatory LIEN KITCHEN Facility:[facility] Start: 03-26-2025 End: 03-26-2025 Patient encounter procedure Us Tech 1 [facility]str [facility] OB/Gynecology Start: 03-26-2025 End: 03-26-2025 ambulatory NANCY SIL OB/Gynecology Start: 03-23-2025 End: 03-23-2025 Follow-up encounter Nancy Sil DIRECTOR [facility].SUPERVISOR [employer] Work Phone: OB/Gynecology Comment on above: Results Start: 03-20-2025 End: 03-20-2025 Patient encounter procedure Nancy Sil DIRECTOR [facility].SUPERVISOR [employer] Work Phone: OB/Gynecology Comment on above: Irregular menstrual cycle (Primary Dx) Start: 03-20-2025 End: 03-20-2025 ambulatory NANCY SIL Facility:[facility] Start: 03-10-2025 End: 03-10-2025 ambulatory Mary Sifuentes MD Work Phone: [facility] Work Phone: Start: 03-10-2025 End: 03-10-[address] Mary Sifuentes MD -Laboratory [facility] Start: 03-10-2025 End: 03-10-2025 ambulatory Mary Sifuentes Facility:[facility] Start: 12-26-2023 End: 12-26-[address] Ignacio Townsend Work Phone: [facility] Work Phone: Start: 12-26-2023 End: 12-26-[address] Ignacio Townsend Work Phone: [facility]-Laboratory, [facility] Start: 11-28-2023 End: 11-28-[address] Ignacio Townsend Work Phone: [facility] Work Phone: Start: 07-11-2023 End: 07-11-2023 ambulatory MD [facility] Procedures Date Procedure Procedure Detail Performing Clinician Start: 03-26-2025 Us pelvic nonobstetr ic real-time image complete Nancy Mujica DIRECTOR [employer].SUPERVISOR [employer] Work Phone: Start: 03-10-2025 Total iron binding capacity measurement Mary Sifuentes MD Work Phone: Start: 03-10-2025 Vitamin D, 25-hydrox y measurement Mary Sifuentes MD Work Phone: Comment on above: Vitamin D StatusDefi ciency: <20 ng/mL (50nmol/L)Insufficiency: 20-30 ng/mL (50-75 nmol/L)Sufficiency: 30-100 ng/mL (75-250 nmol/L)Toxicity: >100 ng/mL (>250 nmol/L) Plan of Treatment Date Care Activity Detail Author Start: 02-14-2028 Urine microalbumin profile DTaP,Tdap,Td Vaccine (7 - Td or Tdap) [facility] Start: 03-25-2026 End: 03-25-2026 Patient encounter procedure 03/25/2026 7:00 AM EDT Office Visit OB/Gynecology [address] [place] [address] Nancy Mujica APRN.SUPERVISOR [employer] [address] [place] [address] annual OB/Gynecology Comment on above: annual Start: 08-03-2025 End: 08-03-2025 Patient encounter procedure 08/03/2025 12:45 PM EDT Office Visit OB/Gynecology [address] [place] [address] Nancy Mujica APRN.SUPERVISOR [employer] [address] [place] [address] Follow up OB/Gynecology Comment on above: Follow up Start: 06-08-2025 Influenza vaccination C [facility] Start: 05-14-2025 End: 08-13-2025 THYROGLOBULIN ANTIBODY THYROGLOBULIN ANTIBODY Lab Routine Elevated TSH Expected: 05/14/2025, Expires: 08/13/2025 [facility] Comment on above: Expected: 05/14/2025 , Expires: 08/13/2025 Start: 05-14-2025 End: 08-13-2025 THYROID PEROXIDASE ANTIBODY THYROID PEROXIDASE ANTIBODY Lab Routine Elevated TSH Expected: 05/14/2025, Expires: 08/13/2025 [facility] Comment on above: Expected: 05/14/2025 , Expires: 08/13/2025 Start: 05-14-2025 End: 08-13-2025 Thyrotropin [Units/volume] in Serum or Plasma THYROID STIMULATING HORMONE Lab Routine Elevated TSH Irregular periods/menstrual cycles Expected: 05/14/2025, Expires: 08/13/2025 [facility] Work Phone: Comment on above: Expected: 05/14/2025 , Expires: 08/13/2025 Start: 05-14-2025 End: 08-13-2025 Thyroxine (T4) free [Mass/volume] in Serum or Plasma T4 FREE/FREE THYROXINE Lab Routine Elevated TSH Irregular periods/menstrual cycles Expected: 05/14/2025, Expires: 08/13/2025 [facility] Comment on above: Expected: 05/14/2025 , Expires: 08/13/2025 Start: 05-14-2025 End: 05-14-2025 Patient encounter procedure 05/14/2025 8:00 AM EDT Office Visit Endocrinology [address] [place] [address] Lien Kitchen MD [address] [place] [address] Dx: Elevated TSH [R79.89] Endocrinology Comment on above: Dx: Elevated TSH [R7 9.89] Start: 04-23-2025 End: 04-23-2025 Patient encounter procedure 04/23/2025 8:00 AM EDT Office Visit OB/Gynecology [address] [place] [address] Nancy Mujica APRN.SUPERVISOR [employer] [address] [place] [address] Discuss hormonal options for period regulation OB/Gynecology Comment on above: Discuss hormonal opt ions for period regulation Start: 03-27-2025 End: 03-27-2025 ambulatory 03/27/2025 10:00 AM EDT Procedure OB/Gynecology [address] [place] [address] Remote, Manager Transmission [facility] [address] [place] [address] Irregular menstrual cycle [N92.6] OB/Gynecology Comment on above: Irregular menstrual cycle [N92.6] Start: 03-20-2025 End: 06-19-2025 17-Hydroxyprogesterone [Mass/volume] in Serum or Plasma [facility] Comment on above: Expected: 03/20/2025 , Expires: 06/19/2025 Start: 03-20-2025 End: 06-19-2025 DHEA-S BLD [facility] Comment on above: Expected: 03/20/2025 , Expires: 06/19/2025 Start: 03-20-2025 End: 06-19-2025 Estradiol (E2) [Mass/volume] in Serum or Plasma [facility] Comment on above: Expected: 03/20/2025 , Expires: 06/19/2025 Start: 03-20-2025 End: 06-19-2025 Fasting glucose [Mass/volume] in Serum or Plasma [facility] Comment on above: Expected: 03/20/2025 , Expires: 06/19/2025 Start: 03-20-2025 End: 06-19-2025 Follitropin [Units/volume] in Serum or Plasma [facility] Comment on above: Expected: 03/20/2025 , Expires: 06/19/2025 Start: 03-20-2025 End: 06-19-2025 Hemoglobin A1c in Blood [facility] Comment on above: Expected: 03/20/2025 , Expires: 06/19/2025 Start: 03-20-2025 End: 06-19-2025 Lutropin [Units/volume] in Serum or Plasma [facility] Comment on above: Expected: 03/20/2025 , Expires: 06/19/2025 Start: 03-20-2025 End: 06-19-2025 Prolactin [Mass/volume] in Serum or Plasma [facility] Comment on above: Expected: 03/20/2025 , Expires: 06/19/2025 Start: 03-20-2025 End: 06-19-2025 Thyrotropin [Units/volume] in Serum or Plasma [facility] Work Phone: Comment on above: Expected: 03/20/2025 , Expires: 06/19/2025 Start: 03-20-2025 End: 03-20-2026 US Pelvis PELVIC US [facility] Anc Imaging Routine Irregular menstrual cycle Expected: 03/20/2025, Expires: 03/20/2026 [facility] Comment on above: Expected: 03/20/2025 , Expires: 03/20/2026 Start: 06-08-2024 Covid-19 Vaccine () Covid-19 Vaccine () [facility] Start: 2023 Anxiety Screening Anxiety Screening [facility] Start: 2023 Depression Screening Depression Scre ening [facility] Start: 2023 GC (Gonorrhea) Screening (18) GC (Gonorrhea) Screening (18) [facility] Start: 2023 Hepatitis C screening Hepatitis C Sc reening [facility] Start: 2023 HIV screening HIV Screening [facility] Start: 2023 Screening for Chlamy dylan trachomatis Chlamydia Screening () [facility] Start: 2021 Meningococcal B Vacc ine (1 of 2 - Standard) Meningococcal B Vaccine (1 of 2 - Standard) [facility] Start: 2020 HPV Vaccine (1 - 3-d ose series) HPV Vaccine (1 - 3-dose series) [facility] Start: 2019 Peds To Adult Transition Annual Assessment Peds To Adult Transition Annual Assessment [facility] Start: 2017 Peds To Adult Transition Initial Discussion Peds To Adult Transition Initial Discussion [facility] 24 Hour ECG [facility] Tilt table test [facility] Immunizations Immunization Date Immunization Notes Care Provider Fa humberto 07-10-2023 influenza virus vacc ine, unspecified formulation Nancy Mujica DIRECTOR [facility].SUPERVISOR [employer] Work Phone: [facility] Payers Date Payer Category Payer Self-pay [id number] 2019 Private Health Insurance [employer] PPO [id number] 2019 Unknown [id number] 1977 Unknown [id number] Unknown [id number] Social History Date Type Detail Facility Start: 11-28-2023 Tobacco smoking status NHIS Unknown if ever smoked [facility] Start: 2005 Sex Assigned At Female [facility] Start: 11-28-2023 End: 04-16-2025 Tobacco smoking status NHIS Never smoked tobacco (finding) [facility] Start: 04-21-2019 End: 04-16-2025 Tobacco use and exposure Smokeless tobacco non-user [facility] Start: 03-20-2025 End: 04-23-2025 Alcoholic beverage intake Ex-drinker (finding) [facility] Start: 03-20-2025 End: 04-16-2025 History of Social function [facility] Start: 03-20-2025 End: 04-16-2025 Tobacco use panel [facility] National Score (1-100), lower number is lower risk 66 [facility] Start: 2005 Sex assigned at [facility] file [facility] NEGATED: Highlighted rowStart: NINF History of tobacco use Passive smoker [facility] Clinical Notes 03-20-2025 to 05-12-2025 Nancy Mujica APRN.SUPERVISOR [employer] - 05/12/2025 7:51 AM EDTPatient InstructionsNancy Mujica APRN.CNP - 04/23/2025 7:40 AM EDTPatient Lien Crawford MD - 04/16/2025 3:10 PM EDT Note Date & Type Note Facility 05-12-2025 Note HNO ID: [id number] Author: NANCY MUJICA APRN.SUPERVISOR [employer] Service: ? Author Type: Nurse Practitioner Type: Progress Notes Filed: 05/12/2025 08:11 Note Text: Obstetrics and Gynecology [place] [employer] Visit Subjective This is a virtual visit using Blinkitom Video Visit. It required patient-provider interaction for the medical decision making as documented below. I have communicated my name and active licensure. The patient?s identity and physical location were verified at the time of this visit. Either the patient or their legal dairy supplies sales representative has been informed of the risks and benefits of -- and alternatives to -- treatment through a remote evaluation and consents to proceed with the evaluation remotely. Recording using Soteira software for draft documentation of the visit was discussed with the patient/authorized dairy supplies sales representative; all questions welcomed and answered. Patient/authorized dairy supplies sales representative agreed to proceed CHIEF COMPLAINT: The patient is a 19-year-old female presenting with mood swings and severe cramps following the initiation of a new control regimen. HPI: Kassy Castillo is a 19 year old Menstrual Irregularities - Started a new combined oral contraceptive (JAROD) approximately three weeks ago. - Reports severe cramps that began after starting the new control, describing the pain as involving the "full lower half of my body." - Tried ibuprofen, Midol, and heat application without relief. - Stopped taking the control four days ago due to severe mood swings and cramps, but reports that the cramps have persisted. Mood Swings - Reports significant mood swings since starting the new control, describing episodes as "Jekyll and Newman moments." - Experiences sudden shifts from happiness to being "really upset" for hours, noting that these episodes have been concerning to her and her family. - Reports feeling "sad without any reason" and experiencing fatigue, stating, "I feel like I don't want to do anything." - Stopped taking the control four days ago due to severe mood swings and cramps, but reports that the mood swings have persisted. - Family history of similar issues with control, noting that her mother and aunts had to try multiple types before finding one that worked for them. 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, stating, "I want to feel like I do have control over my emotions." HISTORY: OB History Gravida0 Para0 Term0 Preterm0 AB0 Living0 SAB0 IAB0 Ectopic0 Multiple0 Live Births0 Food Preparation Worker History LMP: 02/12/2025 (Exact Date), Having periods Age at Menarche: Age at First : Age at Menopause: Food Preparation Worker History Comments: Sexual Activity: Never; No partner data on record Contraception: No contraception data on record PAST MEDICAL HISTORY Diagnosis Date Generalized anxiety disorder PTSD (post-traumatic stress disorder) PAST SURGICAL HISTORY Procedure Laterality Date EXTRACTION ERUPTED TOOTH/EXR FAMILY HISTORY Problem Relation Age of Onset Breast Cancer Maternal Grandmother 50's Dementia Maternal Grandfather Hyperthyroidism Paternal Grandmother Skin Cancer Paternal Grandfather Social History Tobacco Use Smoking status: Never Passive exposure: Never Smokeless tobacco: Never Vaping Use Vaping status: Never Used Substance Use Topics Alcohol use: Not Currently Drug use: Never Current Outpatient Medications Medication Sig Drospirenone-Ethinyl Estradiol (TAMIKO, 28,) 3-0.02 mg per tablet Take 1 tablet by mouth once daily. ferrous sulfate (IRON) 325 mg (65 mg iron) tablet Take 325 mg by mouth as needed (during menses). ergocalciferol 50,000 unit capsule (VITAMIN D2, DRISDOL) Take 1 capsule by mouth one time a week. Magnesium 200 mg tab Take 200 mg by mouth once daily. No current facility-administered medications for this visit. ALLERGIES No Known Allergies REVIEW OF SYSTEMS: Constitutional: (+) fatigue Genitourinary: (+) pelvic cramping Psychiatric: (+) mood swings, (+) depressed mood Objective PHYSICAL EXAM: GENERAL: pleasant, {female in no apparent distress AANDO x 3. Assessment AND Plan ASSESSMENT AND PLAN: 1. Encounter for surveillance of contraceptive pills (Z30.41) 2. Adverse effect of oral contraceptives, initial encounter (T38.4X5A) - Worsening mood swings, depressive episodes, and fatigue since starting current oral contraceptive 2-3 weeks ago; patient discontinued medication 3-4 days prior to visit due to severity of symptoms. - Discussed that symptoms may improve as hormones stabilize with continued use, but also possibility that current formulation is not suitable. - Discussed trial and error nature of finding the right contraceptive; patient expressed understanding and willingness to try alternatives. - Discussed option of switching to a different combination oral contraceptive with a (more content not included)... [facility] 05-12-2025 History of Presen t illness Narrative Images from the original note were not included. Obstetrics and Gynecology [facility] [employer] Visit Subjective This is a virtual visit using Blinkitom Video Visit. It required patient-provider interaction for the medical decision making as documented below. I have communicated my name and active licensure. The patient s identity and physical location were verified at the time of this visit. Either the patient or their legal dairy supplies sales representative has been informed of the risks and benefits of -- and alternatives to -- treatment through a remote evaluation and consents to proceed with the evaluation remotely. Recording using Soteira software for draft documentation of the visit was discussed with the patient/authorized dairy supplies sales representative; all questions welcomed and answered. Patient/authorized dairy supplies sales representative agreed to proceed CHIEF COMPLAINT: The patient is a 19-year-old female presenting with mood swings and severe cramps following the initiation of a new control regimen. HPI: Kassy Castillo is a 19 year old Menstrual Irregularities - Started a new combined oral contraceptive (JAROD) approximately three weeks ago. - Reports severe cramps that began after starting the new control, describing the pain as involving the "full lower half of my body." - Tried ibuprofen, Midol, and heat application without relief. - Stopped taking the control four days ago due to severe mood swings and cramps, but reports that the cramps have persisted. Mood Swings - Reports significant mood swings since starting the new control, describing episodes as "Jekyll and Newman moments." - Experiences sudden shifts from happiness to being "really upset" for hours, noting that these episodes have been concerning to her and her family. - Reports feeling "sad without any reason" and experiencing fatigue, stating, "I feel like I don't want to do anything." - Stopped taking the control four days ago due to severe mood swings and cramps, but reports that the mood swings have persisted. - Family history of similar issues with control, noting that her mother and aunts had to try multiple types before finding one that worked for them. 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, stating, I want to feel like I do have control over my emotions." HISTORY: OB History Gravida0 Para0 Term0 Preterm0 AB0 Living0 SAB0 IAB0 Ectopic0 Multiple0 Live Births0 Food Preparation Worker History LMP: 02/12/2025 (Exact Date), Having periods Age at Menarche: Age at First : Age at Menopause: Food Preparation Worker History Comments: Sexual Activity: Never; No partner data on record Contraception: No contraception data on record PAST MEDICAL HISTORY Diagnosis Date Generalized anxiety disorder PTSD (post-traumatic stress disorder) PAST SURGICAL HISTORY Procedure Laterality Date EXTRACTION ERUPTED TOOTH/EXR FAMILY HISTORY Problem Relation Age of Onset Breast Cancer Maternal Grandmother 50's Dementia Maternal Grandfather Hyperthyroidism Paternal Grandmother Skin Cancer Paternal Grandfather Social History Tobacco Use Smoking status: Never Passive exposure: Never Smokeless tobacco: Never Vaping Use Vaping status: Never Used Substance Use Topics Alcohol use: Not Currently Drug use: Never Current Outpatient Medications Medication Sig Drospirenone-Ethinyl Estradiol (TAMIKO, 28,) 3-0.02 mg per tablet Take 1 tablet by mouth once daily. ferrous sulfate (IRON) 325 mg (65 mg iron) tablet Take 325 mg by mouth as needed (during menses). ergocalciferol 50,000 unit capsule (VITAMIN D2, DRISDOL) Take 1 capsule by mouth one time a week. Magnesium 200 mg tab Take 200 mg by mouth once daily. No current facility-administered medications for this visit. ALLERGIES No Known Allergies REVIEW OF SYSTEMS: Constitutional: (+) fatigue Genitourinary: (+) pelvic cramping Psychiatric: (+) mood swings, (+) depressed mood Objective PHYSICAL EXAM: GENERAL: pleasant, {female in no apparent distress A&O x 3. Assessment & Plan ASSESSMENT AND PLAN: 1. Encounter for surveillance of contraceptive pills (Z30.41) 2. Adverse effect of oral contraceptives, initial encounter (T38.4X5A) - Worsening mood swings, depressive episodes, and fatigue since starting current oral contraceptive 2-3 weeks ago; patient discontinued medication 3-4 days prior to visit due to severity of symptoms. - Discussed that symptoms may improve as hormones stabilize with continued use, but also possibility that current formulation is not suitable. - Discussed trial and error nature of finding the right contraceptive; patient expressed understanding and willingness to try alternatives. - Discussed option of switching to a different combination oral contraceptive with a different type of progestin, which is also approved for PMDD and may offer better mood stabilization. - Discussed option of progestin-only pill if mood symptoms do not improve with new combination pill. - Start new combination oral contraceptive; patient may start immediately or wait until Sunday to allow for a longer break from previous pill. - Advised patient to report any worsening of mood symptoms or other adverse effects immediately. - Follow-up in 3 months to assess response to new contraceptive. 3. Dysmenorrhea (N94.6) - Persistent lower abdominal cramping unrelieved by ibuprofen, Midol, and heat application. - Discussed non-pharmacologic management including continued use of heating pad and warm baths. - Offered prescription for stronger medication to manage cramps if needed. Nancy Mujica APRN.CNP Medical Decision Making: Problems: Low: Acute, uncomplicated illness or injury Risk: Moderate: Drug management Medical Decision Making Level: 3 - Low documented in this encounter [facility] 04-23-2025 Instructions Nancy Mujica APRN.CNP - 04/23/2025 8:13 AM EDT Images from the original note were not included. Oral Contraceptives: The Combined (Estrogen + Progestin) Pill Beginning the Combined Pill In most packs, the first 21 pills have active ingredients and the last 7 are non-medicine containing pills (placebo) or they may contain iron. There will be bleeding during the week you are taking the placebo pills. There are also packs that contain 24 active medication pills and only 4 placebo pills. These are formulated to give you a shorter period. There are 2 ways to start the pill: Quick Start: Take your first pill as soon as you get the pack. Next period: Take your first pill soon after your next period begins. If you take your first pill up to 5 days after the start of your period, you are protected against right away. If you take your first pill more than 5 days after the start of your period, you should use condoms as back-up for the first 7 days. How Combined Hormonal Contraceptives Work Combined oral contraceptive ( control) pills contain hormones like the ones your body makes (estrogen + a progestin). These hormones stop your ovaries from releasing eggs (ovulating). If your ovary does not release an egg, you cannot get . It is important to remember that no method of control is 100% effective. The combined pill is 93% effective with typical use (how real people use it in real life compared to how people used it in medical studies). There are several advantages associated with the pill: it is highly effective with typical use, is easy to start and stop, may improve acne, will make periods more regular and less painful, may help improve anemia, and long-term use is associated with a reduced risk of ovarian and uterine cancer. Possible Side Effects It can take up to three months for your body to become adjusted to the combined pill. The more common side effects experienced now are breakthrough (unexpected) spotting or bleeding; nausea or vomiting; breast tenderness; and mild fluid retention. There is no long-term weight gain with the use of the combined pill. Most side effects resolve once you have been on the combined pill for three months. If these symptoms continue to occur after the first three months you should check with your physician to see if there is any physical cause and change to another control pill. Problems: Missed 1 pill: Take 2 pills the next day. Missed 2 pills: Take 2 pills the next day and 2 pills the following day. Also use another form of control (condoms) along with the pill for the rest of the month. Taking other medications: The control pill is less effective when you take the antibiotic rifampin, epilepsy (seizure) drugs such as phenytoin, carbamazepine, phenobarbital, topiramate, and some medications for HIV. Let your doctor know if you start taking any of these medications while on the pill. Symptoms to Notify Your Doctor with Immediately: The pill is considered safe for most people. Serious problems are rare. The symptoms below may indicate a serious problem: Pain in your chest or legs Continuous blurred vision Severe headaches Slurred speech Tingling or weakness on one side of your body Shortness of breath Swelling of one leg Refills of Control Pills You should see a health care provider every year for a refill of your prescription. If your prescription should before your next scheduled appointment, you can request a prescription extension if you call or message during regular business hours about at least 1-2 weeks before you need to start the new package of pills. Some information adapted from Reproductive Health Access Project For more information see [email or web address] combination control pills documented in this encounter [facility] 04-23-2025 Note HNO ID: [id number] Author: NANCY MUJICA APRN.CNP Service: ? Author Type: Nurse Practitioner Type: Progress Notes Filed: 04/23/2025 08:34 Note Text: Obstetrics and Gynecology [facility] [employer] Visit Subjective Recording using Sote[employer] software for draft documentation of the visit was discussed with the patient/authorized dairy supplies sales representative; all questions welcomed and answered. Patient/authorized dairy supplies sales representative agreed to proceed CHIEF COMPLAINT: The patient is a 19-year-old female with a history of irregular and heavy menstrual periods presenting for follow-up on lab results and ongoing menstrual irregularities. HPI: Menstrual Irregularities - Last menstrual period (LMP): February 12 - Reports irregular menstrual cycles, with the last period occurring over two months ago. - Describes periods as "hemorrhaging," lasting 7 days, and heavy enough to bleed through pants daily. - Expresses frustration with the unpredictability of her menstrual cycles, stating she feels like a "[id number]" when her period starts unexpectedly. - Interested in starting a low-dose control pill to regulate menstrual cycles and reduce the heaviness and duration of periods. - Hopes that hormonal regulation will also help stabilize mood swings, noting, one day I'm really happy and then the next day I want to tear your face off." Weight Management - Reports difficulty losing weight despite regular exercise. - Bead Supervisor suggested that cortisol levels or dietary habits might be contributing factors. - Currently taking vitamin D and magnesium supplements. - Takes iron supplements as needed during heavy menstrual periods. Thyroid Concerns - Recent thyroid levels were slightly elevated, prompting a referral to an puller over. - Bead Supervisor deemed thyroid levels "probably fine" but scheduled a follow-up blood test in four weeks. - Family history of thyroid problems. HISTORY: OB History Gravida0 Para0 Term0 Preterm0 AB0 Living0 SAB0 IAB0 Ectopic0 Multiple0 Live Births0 Food Preparation Worker History LMP: 02/12/2025 (Exact Date), Having periods Age at Menarche: Age at First : Age at Menopause: Food Preparation Worker History Comments: Sexual Activity: Never; No partner data on record Contraception: No contraception data on record PAST MEDICAL HISTORY Diagnosis Date Generalized anxiety disorder PTSD (post-traumatic stress disorder) PAST SURGICAL HISTORY Procedure Laterality Date EXTRACTION ERUPTED TOOTH/EXR FAMILY HISTORY Problem Relation Age of Onset Breast Cancer Maternal Grandmother 50's Dementia Maternal Grandfather Hyperthyroidism Paternal Grandmother Skin Cancer Paternal Grandfather Social History Tobacco Use Smoking status: Never Passive exposure: Never Smokeless tobacco: Never Vaping Use Vaping status: Never Used Substance Use Topics Alcohol use: Not Currently Drug use: Never Current Outpatient Medications Medication Sig ergocalciferol 50,000 unit capsule (VITAMIN D2, DRISDOL) Take 1 capsule by mouth one time a week. Magnesium 200 mg tab Take 200 mg by mouth once daily. Levonorgestrel-Ethinyl Estrad (AVIANE) 0.1mg - 20mcg per tablet Take 1 tablet by mouth once daily. ferrous sulfate (IRON) 325 mg (65 mg iron) tablet Take 325 mg by mouth as needed (during menses). No current facility-administered medications for this visit. ALLERGIES No Known Allergies REVIEW OF SYSTEMS: Constitutional: (+) weight gain Genitourinary: (+) amenorrhea, (+) menorrhagia Psychiatric: (+) mood swings, (+) anxiety Objective SENSITIVE EXAM: Sensitive exam not performed. PHYSICAL EXAM: BP 124/68 Wt 236 lb 6.4 oz (107.2kg) LMP 02/12/2025 GENERAL: Pleasant; no acute distress PULMONARY: normal inspiratory effort NEURO: alert and oriented x3 EXTREMITIES: normal Assessment AND Plan ASSESSMENT AND PLAN: 1. Irregular menstrual cycle (N92.6) 2. Menorrhagia with irregular cycle (N92.1) - Amenorrhea since February 12; previous cycles characterized by menorrhagia lasting 7 days. - Initiated low-dose oral contraceptive pills to regulate menstrual cycles and reduce menorrhagia. - Educated on potential side effects, including breakthrough bleeding and spotting during the first pack, and advised continuation of the regimen. - Discussed potential risks of estrogen-containing contraceptives, including thromboembolism; provided written information on signs and symptoms to monitor. - Follow-up scheduled between the third and fourth pack to assess efficacy and make dosage adjustments if necessary; virtual visit option available via [employer]. 3. Encounter for initial prescription of contraceptive pills (Z30.011) - Prescribed low-dose oral contraceptive pills; instructed to start on Sunday. - Advised to take the pill at the same time each day, integrated with current morning medication routine. - Prescription sent to [facility] in [place]. Nancy Mujica APRN.SUPERVISOR [employer]IC[employer] Medic (more content not included)... [facility] 04-23-2025 History of Presen t illness Narrative Images from the original note were not included. Obstetrics and Gynecology [facility] [employer] Visit Subjective Recording using ambient [employer] software for draft documentation of the visit was discussed with the patient/authorized dairy supplies sales representative; all questions welcomed and answered. Patient/authorized dairy supplies sales representative agreed to proceed CHIEF COMPLAINT: The patient is a 19-year-old female with a history of irregular and heavy menstrual periods presenting for follow-up on lab results and ongoing menstrual irregularities. HPI: Menstrual Irregularities - Last menstrual period (LMP): February 12 - Reports irregular menstrual cycles, with the last period occurring over two months ago. - Describes periods as "hemorrhaging," lasting 7 days, and heavy enough to bleed through pants daily. - Expresses frustration with the unpredictability of her menstrual cycles, stating she feels like a "[id number]-roo-box" when her period starts unexpectedly. - Interested in starting a low-dose control pill to regulate menstrual cycles and reduce the heaviness and duration of periods. - Hopes that hormonal regulation will also help stabilize mood swings, noting, "one day I'm really happy and then the next day I want to tear your face off." Weight Management - Reports difficulty losing weight despite regular exercise. - Bead Supervisor suggested that cortisol levels or dietary habits might be contributing factors. - Currently taking vitamin D and magnesium supplements. - Takes iron supplements as needed during heavy menstrual periods. Thyroid Concerns - Recent thyroid levels were slightly elevated, prompting a referral to an puller over. - Bead Supervisor deemed thyroid levels "probably fine" but scheduled a follow-up blood test in four weeks. - Family history of thyroid problems. HISTORY: OB History Gravida0 Para0 Term0 Preterm0 AB0 Living0 SAB0 IAB0 Ectopic0 Multiple0 Live Births0 Food Preparation Worker History LMP: 02/12/2025 (Exact Date), Having periods Age at Menarche: Age at First : Age at Menopause: Food Preparation Worker History Comments: Sexual Activity: Never; No partner data on record Contraception: No contraception data on record PAST MEDICAL HISTORY Diagnosis Date Generalized anxiety disorder PTSD (post-traumatic stress disorder) PAST SURGICAL HISTORY Procedure Laterality Date EXTRACTION ERUPTED TOOTH/EXR FAMILY HISTORY Problem Relation Age of Onset Breast Cancer Maternal Grandmother 50's Dementia Maternal Grandfather Hyperthyroidism Paternal Grandmother Skin Cancer Paternal Grandfather Social History Tobacco Use Smoking status: Never Passive exposure: Never Smokeless tobacco: Never Vaping Use Vaping status: Never Used Substance Use Topics Alcohol use: Not Currently Drug use: Never Current Outpatient Medications Medication Sig ergocalciferol 50,000 unit capsule (VITAMIN D2, DRISDOL) Take 1 capsule by mouth one time a week. Magnesium 200 mg tab Take 200 mg by mouth once daily. Levonorgestrel-Ethinyl Estrad (AVIANE) 0.1mg - 20mcg per tablet Take 1 tablet by mouth once daily. ferrous sulfate (IRON) 325 mg (65 mg iron) tablet Take 325 mg by mouth as needed (during menses). No current facility-administered medications for this visit. ALLERGIES No Known Allergies REVIEW OF SYSTEMS: Constitutional: (+) weight gain Genitourinary: (+) amenorrhea, (+) menorrhagia Psychiatric: (+) mood swings, (+) anxiety Objective SENSITIVE EXAM: Sensitive exam not performed. PHYSICAL EXAM: BP 124/68 Wt 236 lb 6.4 oz (107.2kg) LMP 02/12/2025 GENERAL: Pleasant; no acute distress PULMONARY: normal inspiratory effort NEURO: alert and oriented x3 EXTREMITIES: normal Assessment & Plan ASSESSMENT AND PLAN: 1. Irregular menstrual cycle (N92.6) 2. Menorrhagia with irregular cycle (N92.1) - Amenorrhea since February 12; previous cycles characterized by menorrhagia lasting 7 days. - Initiated low-dose oral contraceptive pills to regulate menstrual cycles and reduce menorrhagia. - Educated on potential side effects, including breakthrough bleeding and spotting during the first pack, and advised continuation of the regimen. - Discussed potential risks of estrogen-containing contraceptives, including thromboembolism; provided written information on signs and symptoms to monitor. - Follow-up scheduled between the third and fourth pack to assess efficacy and make dosage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 Patient Records regulations: The Federal rules restrict any use of the information to criminally investigate or prosecute any alcohol or drug abuse patient.[facility] Reason for Visit (unrecogniz ed section and content) Reason Comments Yearly Exam Establish care Reason Onset Date Comments Results 03/23/2025 Reason Comments Thyroid Problem Specialty Diagnoses / Procedures Referred By Sanchez ivy Referred To Contact Endocrinology Diagnoses Elevated TSH Procedures CONSULT TO ENDOCRINOLOGY OFFICE/OUTPATIENT [facility] 60 MINUTES Nancy Mujica APRN.SU[employer] [address] [place] [address] Phone: tel: fax: Referral ID Status Reason Start Date Expiration Date V isits Requested Visits Authorized [id number] Closed PCP Requested Referral 03/23/2025 03/23/2026 1 1 Reason Comments Problem Visit Reason Comments Contraception FOR RECORDS PERTAINING TO PATIENTS WHO ARE [...] BE BASED ON THE PRIMARY CLINICAL RECORDS. [facility]. provides no warranty or guarantee of the accuracy or completeness of information in this document.
== END | disposition home or self-care (01) ==
LOC: MTRAD 16:01
PROVIDERS: PCP Family Medicine; Referring Provider Family Medicine; Visit Provider Family Medicine
DX: R05.9 Cough, unspecified (principal); R07.9 Chest pain, unspecified
CPT/HCPCS: 71046